=== PATIENT | female | born 2005 | race Caucasian/White ===

== ENCOUNTER → 2024-12-19 | Outpatient (CLI) | payer OTHER, SELFPAY ==
[2024-12-19 12:20] LABS: Absolute Lymphocyte Count 1.79 X10^3/uL (0.83-4.51); Absolute Neutrophil Count 10.8 X10^3/uL (2.0-7.7); Basophil# 0.04 X10^3/uL; Basophil% 0.3 % (0-1); Eosinophil# 0.03 X10^3/uL; Eosinophils% 0.2 % (0-5); Hematocrit 38.5 % (37-47); Hemoglobin 13.5 g/dL (12.0-15.0); Lymphocyte # 1.79 X10^3/ul (0.83-4.51); Lymphocyte % 13.2 % (19-41); Mean Corp Hgb Conc 35.1 g/dL (32-36); Mean Corpuscular Hgb 32.8 pg (27.0-32.0); Mean Corpuscular Volume 93.4 fL (81-99); Mean Platelet Vol. 9.9 fl (6.2-12.0); Monocyte# 0.92 X10^3/uL; Monocyte% 6.8 % (0-10); NRBC Flagged by Analyzer 0 % (0-5); Neutrophil # 10.75 X10^3/uL (2.7-7.7); Neutrophil % 78.9 % (47-70); Platelet Count 270 K/mm3 (150-450); RBC Distribution Width CV 11.4 % (11.6-14.6); RBC Distribution Width SD 38.7 fl (35.1-43.9); Red Blood Count 4.12 M/mm3 (4.2-5.4); White Blood Count 13.6 K/mm3 (4.4-11.0)
[2024-12-19 13:27] LABS: HIV Nonreactive (Nonreactive); Hepatitis B Surface Antigen Nonreactive (Nonreactive); Hepatitis C Antibody Nonreactive (Nonreactive); Rubella IgG REAC (Nonreactive); Syphilis Antibodies Nonreactive (Nonreactive)
[2024-12-19 13:27] LABS: Hemoglobin A1c 5.1 % (<=5.6)
[2024-12-21 12:08] LABS: Chlamydia By Nucleic Acid AMP Negative (Negative); Gonococcus By Nucleic Acid AMP Negative (Negative)
[2024-12-25 10:25] LABS: HPV Reflexed? NOT INDICATED
== END | disposition home or self-care (01) ==
PROVIDERS: PCP Nurse Practitioner Family; Referring Provider Advanced Practice Midwife; Visit Provider Advanced Practice Midwife
DX: O99.210 Obesity complicating pregnancy, unspecified trimester (principal); Z12.4 Encounter for screening for malignant neoplasm of cervix; Z3A.00 Weeks of gestation of pregnancy not specified
CPT/HCPCS: 36415; 83036; 85025; 86703; 86762; 86780; 86803; 86850; 86900; 86901; 87086; 87340; 87491; 87591; 88175; G0145

== ENCOUNTER → 2025-04-24 | Outpatient (CLI) | payer OTHER, SELFPAY ==
[2025-04-24 13:18] LABS: Hematocrit 37.4 % (37-47); Hemoglobin 11.6 g/dL (12.0-15.0); Immature Granulocytes Count 0.260 X10^3/uL (0.0-0.0); Mean Corp Hgb Conc 31.0 g/dL (32-36); Mean Corpuscular Volume 109.0 fL (81-99); Mean Platelet Vol. 10.3 fl (6.2-12.0); NRBC Flagged by Analyzer 0 % (0-5); Platelet Count 251 K/mm3 (150-450); RBC Distribution Width CV 12.2 % (11.6-14.6); RBC Distribution Width SD 48.8 fl (35.1-43.9); Red Blood Count 3.43 M/mm3 (4.2-5.4); White Blood Count 12.2 K/mm3 (4.4-11.0)
[2025-04-24 14:44] LABS: Glucose Challenge Gest 1H 50g 86 mg/dL (70-140); HIV Nonreactive (Nonreactive); Syphilis Antibodies Nonreactive (Nonreactive)
--- OUTSIDE RECORDS SUMMARY | 2025-04-24 21:43 | XMS RPT_ITS | CCD ---
Author Organization [facility] Care Team Providers Care Neurodiagnostic Technician Name Role Phone Yu Araiza Primary Care Provider Elly Prater MD Unavailable Ron Hernandez MD Unavailable Leydi Gupta MD Unavailable [phone] ELLY PRATER Attending Unavailable ELLY PRATER Primary Care Unavailable ELLY PRATER Admitting Unavailable YU CASTOR CNP Consulting Unavailable PROVIDER, UNKNOWN Consulting Unavailable PROVIDER, UNKNOWN Consulting Unavailable ELLY PRATER Admitting Unavailable ELLY PRATER Attending Unavailable ELLY PRATER Primary Care Unavailable YU CASTRO CNP Consulting Unavailable PROVIDER, UNKNOWN Consulting Unavailable PROVIDER, UNKNOWN Consulting Unavailable ELLY PRATER Admitting Unavailable ELLY PRATER Attending Unavailable ELLY PRATER Primary Care Unavailable YU CASTRO CNP Consulting Unavailable PROVIDER, UNKNOWN Consulting Unavailable PROVIDER, UNKNOWN Consulting Unavailable Yu Araiza Primary Care Provider Ron Hernandez MD Unavailable Gloria NOEL-CYu Primary Care Provider Gloria NOEL-CYu Referring Provider Jahaira Tai CNM Attending Provider Jahaira Tai CNM Referring Provider Bassam MCDONNELL, Dr. Salmon Attending Provider [phone] Ashley Rascon Attending Provider VIKY GALINDO Referring Unavailrivas e VICTOR M CAMERON Attending Unavailable YU CASTRO Primary Care Unavailable ELVIE CAGLE Attending Unavailable ASHLEY DORANTES Referring Unavailable GLORIA, YU D Primary Care Unavailable Joyce Connor CNM Attending Provider Neo Galindoon Attending Unavailable Gloria RD MECHANICAL ENGINEER, Yu Referring Unavailable Gloria RD MECHANICAL ENGINEER, Yu Primary Care Unavailable Hood RD MECHANICAL ENGINEER, Ashley Attending Unavailable Gloria RD MECHANICAL ENGINEER, Yu Referring Unavailable Gloria RD MECHANICAL ENGINEER, Yu Primary Care Unavailable Gloria RD MECHANICAL ENGINEER, Yu Referring Unavailable Gloria RD MECHANICAL ENGINEER, Yu Primary Care Unavailable Hood RD MECHANICAL ENGINEER, Ashley Attending Unavailable Joyce Connor Attending Unavailable Gloria RD MECHANICAL ENGINEER, Yu Referring Unavailable Gloria RD MECHANICAL ENGINEER, Yu Primary Care Unavailable Gloria RD MECHANICAL ENGINEER, Yu Referring Unavailable Gloria RD MECHANICAL ENGINEER, Yu Primary Care Unavailable Hood RD MECHANICAL ENGINEER, Ashley Attending Unavailable Gloria RD MECHANICAL ENGINEER, Yu Primary Care Unavailable Jahaira Tai Attending Unavailable Gloria RD MECHANICAL ENGINEER, Yu Referring Unavailable Jahaira Tai Attending Unavailable Jahaira Tai Referring Unavailable Gloria RD MECHANICAL ENGINEER, Yu Primary Care Unavailable Gloria RD MECHANICAL ENGINEER-C, Yu Primary Care Provider Gloria RD MECHANICAL ENGINEER-C, Yu Referring Provider [phone] Joyce Connor CNM Referring Provider [phone] Allergies Allergy Classification Reported Allergen(s) Allergy Type Date of Onset Reaction(s) Facility (9 sources) Vancomycin; Translations: [VANCOMYCIN] Drug Allergy 03-26-2021 [facility] (1 source) Vancomycin Drug Allergy [facility] (1 source) Vancomycin Drug Allergy 04-11-2025 [facility] Rep[facility] Medications Current Medications Medication Drug Class(es) Dates Sig (Normalized) Sig (Original) acetaminophen 500 mg oral tablet (4 sources) Start: 05-03-2021 take 2 tablets by mouth every six hours as needed for pain acetaminophen (TYLENOL) 500 MG tablet Take 2 Tablets (1,000 mg) by mouth every 6 hours as needed for Pain (migraine) 60 Tablet 5 05/03/2021 Active cetirizine hydrochloride 10 mg oral tablet (4 sources) Histamine-1 Receptor Antagonist Start: 04-29-2021 take 1 tablet by mouth once daily cetirizine (ZYRTEC) 10 MG tablet Take 10 mg by mouth daily 0 04/29/2021 Active cholecalciferol 0.125 mg oral capsule (4 sources) Vitamin D Start: 06-13-2022 take 1 capsule by mouth once daily cholecalciferol (VITAMIN D3) 125 MCG (5000 UT) cap Take 1 Capsule (5,000 Units) by mouth daily 30 Capsule 5 06/13/2022 Active diphenhydrAMINE hydrochloride 25 mg oral capsule (2 sources) Histamine-1 Receptor Antagonist Start: 05-03-2021 take 1 capsule by mouth every six hours as needed for sleep diphenhydrAMINE (BENADRYL) 25 MG capsule Take 1 Capsule (25 mg) by mouth every 6 hours as needed for Itching or Sleep (migraine) 60 Capsule 11 05/03/2021 Active FLUoxetine 10 mg oral tablet (4 sources) Serotonin Reuptake Inhibitor Start: 04-29-2021 take 1 tablet by mouth once daily FLUoxetine (PROZAC) 10 MG tablet Take 10 mg by mouth daily 0 04/29/2021 Active hydrOXYzine hydrochloride 25 mg oral tablet (2 sources) Antihistamine Start: 05-03-2021 take 1 tablet by mouth every eight hours as needed for anxiety, then take 6 tablets by mouth every twenty-four hours as needed for anxiety hydrOXYzine (ATARAX) 25 MG tablet Take 1 Tablet (25 mg) by mouth every 8 hours as needed for Anxiety No more than 6 tabs in 24 hours. 60 Tablet 5 05/03/2021 Active magnesium oxide 400 mg oral tablet (4 sources) Start: 04-19-2022 take 1 tablet by mouth twice daily Magnesium Oxide 400 (240 Mg) MG TABS TAKE 1 TABLET BY MOUTH TWICE A DAY 180 Tablet 3 04/19/2022 Active melatonin 3 mg oral tablet (4 sources) Start: 09-30-2022 take 1-2 tablets by mouth at bedtime melatonin ([facility] MELATONIN) 3 MG tablet TAKE 1 TO 2 TABLETS BY MOUTH 1-2 HOURS BEFORE DESIRED BEDTIME TO AID SLEEP ONSET 180 Tablet 5 09/30/2022 Active Start: 03-15-2022 take 1-2 tablets by mouth at bedtime melatonin ([facility] MELATONIN) 3 MG tablet TAKE 1 TO 2 TABLETS BY MOUTH 1-2 HOURS BEFORE DESIRED BEDTIME TO AID SLEEP ONSET 180 Tablet 1 03/15/2022 Active naproxen sodium 220 mg oral tablet (4 sources) Nonsteroidal Anti-inflammatory Drug Start: 05-03-2021 take 3 tablets by mouth every twelve hours as needed for pain Naproxen Sodium (ALEVE) 220 MG TABS tablet Take 3 Tablets (660 mg) by mouth every 12 hours as needed for Pain (Immediately at start of migraine symptoms. No more than 2 days per week) 60 Tablet 11 05/03/2021 Active Pnv No.[id number]-Dh a-Epa-Fish 400 mcg-35 mg- 25 mg-5 mg tablet,chewable (4 sources) Start: 11-26-2024 Pnv No.[id number]-[id number]-Dha -Epa-Fish 400 mcg-35 mg- 25 mg-5 mg tablet,chewable Active {tbl} PO November 26, 2024 1:00am Probiotic Product (PROBIOTIC-10 PO) (4 sources) Probiotic Produc t (PROBIOTIC-10 PO) Take 1 Capsule by mouth 11 Elevated from [facility] [place]. 0 Active riboflavin 100 mg oral tablet (4 sources) Start: 05-23-2022 take 1 tablet by mouth twice daily vitamin B-2 (RIBOFLAVIN) 100 MG tablet TAKE 1 TABLET BY MOUTH TWICE A DAY 180 Tablet 3 05/23/2022 Active Completed/Discontinued Medications Medication Drug Class(es) Dates Sig (Normalized) Sig (Original) gadoterate meglumine (DOTAREM) 10 MMOL/20ML injection 15.8 mL (1 source) Start: 10-04-2022 End: 10-04-2022 gadoterate meglumine (DOTAREM) 10 MMOL/20ML injection 15.8 mL inulin 2000 mg chewable tablet (4 sources) Start: 04-07-2024 End: 11-26-2024 Inulin (Fiber Gummies) 2 gram tablet,chewable Discontinued g PO April 07, 2024 12:00am November 26, 2024 12:05pm Multivitamin tablet (4 sources) Start: 04-07-2024 End: 11-26-2024 Multivitamin tablet Discontinued 1 {tbl} PO DAILY April 07, 2024 12:00am November 26, 2024 12:05pm predniSONE 10 mg oral tablet (4 sources) Start: 04-07-2024 End: 04-22-2024 Prednisone 10 mg tablet Discontinued 10 mg PO .COMPLEX 35 15 0 April 07, 2024 12:00am April 21, 2024 12:00am April 22, 2024 12:05am 10 mg orally; 40mg x5 days, 20mg x5 days, 10mg x5 days Problems Active Problems Problem Classification Problem Date Documented Date Episodic/Chronic Administrative/social admission (4 sources) Patient encounter status; Translations: [Encounter for pre-employment examination] 11-26-2024 Episodic Allergic reactions (13 sources) Contact dermatitis; Translations: [Unspecified contact dermatitis, unspecified cause] Onset: 01-15-2025 06-04-2024 Episodic Anxiety disorders (20 sources) Anxiety; Translations: [Anxiety disorder, unspecified] Onset: 05-03-2021 05-03-2021 Chronic Comment on above: Mild Headache; including migraine (5 sources) Migraine without aura, not refractory ; Translations: [Migraine without aura, not intractable, without status migrainosus] Onset: 05-03-2021 05-03-2021 Chronic Mood disorders (8 sources) Depressive disorder; Translations: [Depression] Onset: 05-03-2021 05-03-2021 Chronic Other complications of (19 sources) Maternal obesity complicating , childbirth and the puerperium, antepartum; Translations: [Obesity complicating , unspecified trimester] 11-26-2024 Chronic Comment on above: HgbA1c Other complications of (1 source) Obesity complicating , unspecified trimester; Translations: [Obesity complicating , unspecified trimester] Onset: 01-27-2025 Chronic Other connective tissue disease (3 sources) Disorder of ankle; Translations: [Other symptoms and signs involving the musculoskeletal system] Episodic Other connective tissue disease (3 sources) Other symptoms and signs involving the musculoskeletal system; Translations: [Other symptoms and signs involving the musculoskeletal system] Onset: 06-23-2022 Episodic Other connective tissue disease (2 sources) Spasticity; Translations: [Cramp and spasm] Episodic Other eye disorders (5 sources) Nystagmus; Translations: [Unspecified nystagmus] Onset: 11-11-2021 11-11-2021 Chronic Other hereditary and degenerative nervous system conditions (5 sources) Yamilet's disease; 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] Onset: 11-11-2021 11-11-2021 Chronic Other nervous system disorders (7 sources) Demyelinating disease of central nervous system; Translations: [Demyelinating disease of central nervous system, unspecified] Onset: 05-03-2021 05-03-2021 Chronic Other nutritional; endocrine; and metabolic disorders (5 sources) Mitochondrial cytopathy; 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 discussed NIPT & Car rier testing-undecided, needs f/u anatomy in 2 weeks:completed. position still would not allow full visual of right hand and could not rule out webbing of fingers. No US follow up but check after delivery. Residual codes; unclassified (2 sources) Genetic mutation; Translations: [Genetic susceptibility to other disease] Onset: 09-20-2022 09-20-2022 Episodic Residual codes; unclassified (1 source) 25 weeks gestation of ; Translations: [25 weeks gestation of ] Onset: 04-11-2025 Episodic Past or Other Problems Problem Classification Problem Date Documented Da te Episodic/Chronic Blindness and vision defects (5 sources) Diplopia; Translations: [Diplopia] Onset: 11-11-2021 11-11-2021 Episodic Other screening for suspected conditions (not mental disorders or infectious disease) (6 sources) Magnetic resonance imaging of brain abnormal; Translations: [Other abnormal findings on diagnostic imaging of central nervous system] Onset: 11-11-2021 11-11-2021 Episodic Residual codes; unclassified (4 sources) Insomnia; Translations: [Insomnia, unspecified] Onset: 05-03-2021 05-03-2021 Episodic Residual codes; unclassified (1 source) 13 weeks gestation of ; Translations: [13 weeks gestation of ] Onset: 01-15-2025 Episodic Residual codes; unclassified (1 source) 9 weeks gestation of ; Translations: [9 weeks gestation of ] Onset: 12-19-2024 Episodic Results Test Name Value Interpretation Reference Range Facility Laboratory - Chemistry and C hemistry - challengeOrdered By: Joyce Connor on 04-11-2025 Glucose Ql (U) Negative [facility] Laboratory - UrinalysisOrder ed By: Joyce Connor on 04-11-2025 Protein Ql (U) Negative [facility] Inspector [employer] Wafer Office Visit Reporton 04-11-2025 Inspector [employer] Wafer Office Visit Report [facility] [address], [address] [place] [address] OFFICE VISIT Date of Service: 04/11/25 MR#: [id number] Acct: [id number] Name: RAPHAEL SHEETS Rep #: [id number] : 2005 Provider: JANE vernon Age/Sex: 20/F [place] [facility] [place]: Signed Intake Vital Signs 02/12/25 08:26 03/12/25 15:07 04/11/25 10:27 Height 5 ft 4 in 5 ft 4 in 5 ft 4 in Weight: 187 lb 6 oz BMI 32.1 BP 110/73 Intake Visit Reasons: 26 wk ob *rs 8/ appt* Chief Complaint: 26wk OB Core Maker Helper Required: No Is patient in pain?: No Allergies vancomycin Allergy (Verified 04/11/25 10:28) Hives Medications ???Medication ???Instructions ???Recorded ???Confirmed ???Type PNV 153-FA 400 mcg-om3 35 mg-dha tab PO 11/26/24 04/11/25 History 25 mg-epa 5 mg-fish oil chew tablet Last Menstrual Period: 10/12/24 : No PFSH PFSH Surgical History Index teeth extracted Family History Grandmother Diabetes Maternal Heart disease Maternal Cancer, Onset Age: 63 Maternal Kidney Grandfather Diabetes Maternal Heart disease Maternal Cancer Maternal Prostate with Mets Social History adopted: No household members: spouse current occupational status: employed 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[employer] current occupational exposures/hazards: No pets and animals: Yes pets and animals: dog(s) history of recent travel: No sexually active: Yes Smoking Status: Never smoker alcohol intake: current alcohol intake frequency: holidays/special occasions only details: not while substance use type: does not use well-balanced diet: about half the time caffeine: Yes Type: coffee Number of servings: 1 eating out: rarely or never during the past year weight has: remained stable what type of physical activity do you participate in: walking frequency: daily duration: 15-30 minutes/day yue/confucianism: Yarsanism seatbelt use: always do you feel safe at home: Yes additional social history: Arun- [employer] Member History 1 Elective abortions Hx Para 0 Spontaneous abortions Hx # Term Pregnancies Ectopic pregnancies Hx # Pregnancies Multiple births # of living children HPI 26 wk ob *rs 05/22 appt* Details: RAPHAEL SHEETS is a 20 year old who presents for routine OB visit. OB Visit [facility]ANCA Calculator Estimated Delivery Date Method Current WG Current Estimate 07/19/25 LMP (Certain) 25w 6d Other Estimates 07/14/25 Ultrasound #1 26w 4d Expected Delivery Route/Plan Labor Preferences- CB/BF classes: enc. labor support person: [] labor intervention preferences: [] pain management options preferred: [] cut cord/dad catch: [] : [] PP control planned: [] discussed possible routes of delivery and associated risks: [] special requests: [] Specific Issue/Plans Covid status: [] Flu vaccine: [] Tdap vaccine: [] Rhogam: [] LARC form signed: [] Problem list reviewed and updated with the most current plan of care details and appropriate orders placed. Relevant counseling for the gestational age provided. Continue routine care and follow up unless otherwise noted in visit notes/problem list details Initial Weight: 168 lb Date -???-???-???-???-?? ?-???-???-???-???-? ??-???-???- EGA Weight BP Urine Prot -???-???-???-???-?? ?-???-???-???-???-? ??-???-???- Glucose FHR FuHt Pres Dilation -???-???-???-???-?? ?-???-???-???-???-? ??-???-???- Effaced St Visit Note 12/19/24 -???-???-???-???-?? ?-???-???-???-???-? ??-???-???- 9w 5d 168 lb 8 oz (+8 oz) 114/77 -???-???-???-???-?? ?-???-???-???-???-? ??-???-???- 181 -???-???-???-???-?? ?-???-???-???-???-? ??-???-???- KW- CRL cons with dates. declines NIPT. 01/15/25 -???-???-???-???-?? ?-???-???-???-???-? ??-???-???- 13w 4d 173 lb 4 oz (+5 lb 4 oz) 111/72 Negative -???-???-???-???-?? ?-???-???-???-???-? ??-???-???- Negative 150 -???-???-???-???-?? ?-???-???-???-???-? ??-???-???- SM- no vb cr maping 02/12/25 -???-???-???-???-?? ?-???-???-???-???-? ??-???-???- 17w 4d 177 lb (+9 lb) 112/72 Negative -???-???-???-???-?? ?-???-???-???-???-? ??-???-???- Negative 155 -???-???-???-???-?? ?-???-???-???-???-? ??-???-???- -NO VB. Fe els well. Denies concerns 03/12/25 -???-???-???-???-?? ?-???-???-???-???-? ??-???-???- 21w 4d 185 lb 2 oz (+17 lb 2 oz) 108/70 Negative -???-???-???-???-?? ?-???-???-???-???-? ??-???-???- Negative 150 -???-???-???-???-?? ?-???-???-???-???-? ??-???-???- -No VB. Fe eling flutters. 04/11/25 -???-???-???-???-?? ?-???-???-???-???-? ??-???-???- 25w (more content not included)... Normal [facility] Laboratory - Chemistry and C hemistry - challengeOrdered By: Farzana Shields on 03-12-2025 Glucose Ql (U) Negative [facility] Laboratory - UrinalysisOrder ed By: Farzana Shields on 03-12-2025 Protein Ql (U) Negative [facility] Inspector [employer] Wafer Office Visit Reporton 03-12-2025 Inspector [employer] Wafer Office Visit Report [facility] [address], [address] [place] [address] OFFICE VISIT Date of Service: 03/12/25 MR#: [id number] Acct: [id number] Name: RAPHAEL SHEETS Rep #: [id number] : 2005 Provider: MAXIMILIAN smith Age/Sex: 19/F [place] [facility] [place]: Signed Intake Vital Signs 01/15/25 11:48 02/12/25 08:26 03/12/25 15:07 Height 5 ft 4 in 5 ft 4 in 5 ft 4 in Weight: 185 lb 2 oz BMI 31.7 BP 108/70 Intake Visit Reasons: 22 wk ob Chief Complaint: 22 Week OB Core Maker Helper Required: No Is patient in pain?: No Allergies vancomycin Allergy (Verified 02/12/25 08:25) Hives Medications ???Medication ???Instructions ???Recorded ???Confirmed ???Type PNV 153-FA 400 mcg-om3 35 mg-dha tab PO 11/26/24 03/12/25 History 25 mg-epa 5 mg-fish oil chew tablet Last Menstrual Period: 10/12/24 Zika: Zika virus screening: Negative : No PFSH PFSH Surgical History Index teeth extracted Family History Grandmother Diabetes Maternal Heart disease Maternal Cancer, Onset Age: 63 Maternal Kidney Grandfather Diabetes Maternal Heart disease Maternal Cancer Maternal Prostate with Mets Social History adopted: No household members: spouse current occupational status: employed 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[employer] current occupational exposures/hazards: No pets and animals: Yes pets and animals: dog(s) history of recent travel: No sexually active: Yes Smoking Status: Never smoker alcohol intake: current alcohol intake frequency: holidays/special occasions only details: not while substance use type: does not use well-balanced diet: about half the time caffeine: Yes Type: coffee Number of servings: 1 eating out: rarely or never during the past year weight has: remained stable what type of physical activity do you participate in: walking frequency: daily duration: 15-30 minutes/day yue/confucianism: Yarsanism seatbelt use: always do you feel safe at home: Yes additional social history: [employer]un- [employer] Member History 1 Elective abortions Hx Para 0 Spontaneous abortions Hx # Term Pregnancies Ectopic pregnancies Hx # Pregnancies Multiple births # of living children HPI 22 wk ob Details: RAPHAEL SHEETS is a 19 year old who presents for routine OB visit. OB Visit BLANCA Calculator Estimated Delivery Date Method Current WG Current Estimate 07/19/25 LMP (Certain) 21w 4d Other Estimates 07/14/25 Ultrasound #1 22w 2d Expected Delivery Route/Plan Labor Preferences- CB/BF classes: [] labor support person: [] labor intervention preferences: [] pain management options preferred: [] cut cord/dad catch: [] : [] PP control planned: [] discussed possible routes of delivery and associated risks: [] special requests: [] Specific Issue/Plans Covid status: [] Flu vaccine: [] Tdap vaccine: [] Rhogam: [] LARC form signed: [] Problem list reviewed and updated with the most current plan of care details and appropriate orders placed. Relevant counseling for the gestational age provided. Continue routine care and follow up unless otherwise noted in visit notes/problem list details Initial Weight: 168 lb Date -???-???-???-???-?? ?-???-???-???-???-? ??-???-???- EGA Weight BP Urine Prot -???-???-???-???-?? ?-???-???-???-???-? ??-???-???- Glucose FHR FuHt Pres Dilation -???-???-???-???-?? ?-???-???-???-???-? ??-???-???- Effaced St Visit Note 12/19/24 -???-???-???-???-?? ?-???-???-???-???-? ??-???-???- 9w 5d 168 lb 8 oz (+8 oz) 114/77 -???-???-???-???-?? ?-???-???-???-???-? ??-???-???- 181 -???-???-???-???-?? ?-???-???-???-???-? ??-???-???- KW- CRL cons with dates. declines NIPT. 01/15/25 -???-???-???-???-?? ?-???-???-???-???-? ??-???-???- 13w 4d 173 lb 4 oz (+5 lb 4 oz) 111/72 Negative -???-???-???-???-?? ?-???-???-???-???-? ??-???-???- Negative 150 -???-???-???-???-?? ?-???-???-???-???-? ??-???-???- SM- no vb cr maping 02/12/25 -???-???-???-???-?? ?-???-???-???-???-? ??-???-???- 17w 4d 177 lb (+9 lb) 112/72 Negative -???-???-???-???-?? ?-???-???-???-???-? ??-???-???- Negative 155 -???-???-???-???-?? ?-???-???-???-???-? ??-???-???- MH-NO VB. Fe els well. Denies concerns 03/12/25 -???-???-???-???-?? ?-???-???-???-???-? ??-???-???- 21w 4d 185 lb 2 oz (+17 lb 2 oz) 108/70 Negative -???-???-???-???-?? ?-???-???-???-???-? ??-???-???- Negative 150 -???-???-???-???-?? ?-???-???-???-???-? ??-???-???- MH-No VB. Fe eling flutters. ACOG First Trimester First Tr (more content not included)... Normal [facility] Laboratory - Chemistry and C hemistry - challengeOrdered By: Ashley Dorantes on 02-12-2025 Glucose Ql (U) Negative [facility] Laboratory - UrinalysisOrder ed By: Ashley Dorantes on 02-12-2025 Protein Ql (U) Negative [facility] Inspector [employer] Wafer Office Visit Reporton 02-12-2025 Inspector [employer] Wafer Office Visit Report [facility] [address], [address] [place] [address] OFFICE VISIT Date of Service: 02/12/25 MR#: [id number] Acct: [id number] Name: RAPHAEL SHEETS Rep #: [id number] : 2005 Provider: MAXIMILIAN smith Age/Sex: 19/F [place] [facility] Status: Signed Intake Vital Signs 12/19/24 08:41 01/15/25 11:48 02/12/25 08:26 Height 5 ft 4 in 5 ft 4 in 5 ft 4 in Weight: 168 lb 8 oz 173 lb 4 oz 177 lb BMI 28.9 29.7 30.4 BP 114/77 111/72 112/72 Intake Visit Reasons: 18 wk ob Chief Complaint: 18 Week OB Core Maker Helper Required: No Is patient in pain?: No Allergies vancomycin Allergy (Verified 02/12/25 08:25) Hives Medications ???Medication ???Instructions ???Recorded ???Confirmed ???Type PNV 153-FA 400 mcg-om3 35 mg-dha tab PO 11/26/24 02/12/25 History 25 mg-epa 5 mg-fish oil chew tablet Last Menstrual Period: 10/12/24 Zika: Zika virus screening: Negative : No PFSH PFSH Surgical History Index teeth extracted Family History Grandmother Diabetes Maternal Heart disease Maternal Cancer, Onset Age: 63 Maternal Kidney Grandfather Diabetes Maternal Heart disease Maternal Cancer Maternal Prostate with Mets Social History adopted: No household members: spouse current occupational status: employed 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[employer] current occupational exposures/hazards: No pets and animals: Yes pets and animals: dog(s) history of recent travel: No sexually active: Yes Smoking Status: Never smoker alcohol intake: current alcohol intake frequency: holidays/special occasions only details: not while substance use type: does not use well-balanced diet: about half the time caffeine: Yes Type: coffee Number of servings: 1 eating out: rarely or never during the past year weight has: remained stable what type of physical activity do you participate in: walking frequency: daily duration: 15-30 minutes/day yue/confucianism: Yarsanism seatbelt use: always do you feel safe at home: Yes additional social history: Arun- Marce History 1 Elective abortions Hx Para 0 Spontaneous abortions Hx # Term Pregnancies Ectopic pregnancies Hx # Pregnancies Multiple births # of living children HPI 18 wk ob Details: RAPHAEL SHEETS is a 19 year old who presents for routine OB visit. OB Visit BLANCA Calculator Estimated Delivery Date Method Current WG Current Estimate 07/19/25 LMP (Certain) 17w 4d Other Estimates 07/14/25 Ultrasound #1 18w 2d Expected Delivery Route/Plan Labor Preferences- CB/BF classes: [] labor support person: [] labor intervention preferences: [] pain management options preferred: [] cut cord/dad catch: [] : [] PP control planned: [] discussed possible routes of delivery and associated risks: [] special requests: [] Specific Issue/Plans Covid status: [] Flu vaccine: [] Tdap vaccine: [] Rhogam: [] LARC form signed: [] Problem list reviewed and updated with the most current plan of care details and appropriate orders placed. Relevant counseling for the gestational age provided. Continue routine care and follow up unless otherwise noted in visit notes/problem list details Initial Weight: 168 lb Date -???-???-???-???-?? ?-???-???-???-???-? ??-???-???- EGA Weight BP Urine Prot -???-???-???-???-?? ?-???-???-???-???-? ??-???-???- Glucose FHR FuHt Pres Dilation -???-???-???-???-?? ?-???-???-???-???-? ??-???-???- Effaced St Visit Note 12/19/24 -???-???-???-???-?? ?-???-???-???-???-? ??-???-???- 9w 5d 168 lb 8 oz (+8 oz) 114/77 -???-???-???-???-?? ?-???-???-???-???-? ??-???-???- 181 -???-???-???-???-?? ?-???-???-???-???-? ??-???-???- KW- CRL cons with dates. declines NIPT. 01/15/25 -???-???-???-???-?? ?-???-???-???-???-? ??-???-???- 13w 4d 173 lb 4 oz (+5 lb 4 oz) 111/72 Negative -???-???-???-???-?? ?-???-???-???-???-? ??-???-???- Negative 150 -???-???-???-???-?? ?-???-???-???-???-? ??-???-???- SM- no vb cr maping 02/12/25 -???-???-???-???-?? ?-???-???-???-???-? ??-???-???- 17w 4d 177 lb (+9 lb) 112/72 Negative -???-???-???-???-?? ?-???-???-???-???-? ??-???-???- Negative 155 -???-???-???-???-?? ?-???-???-???-???-? ??-???-???- MH-NO VB. Fe els well. Denies concerns ACOG First Trimester First Trimester: Discussed Second Trimester Second Trimester: Signs and Symptoms of Labor, Selecting a care provider, Reproductive Life Planning Contreception, Care Planning, Depression/An (more content not included)... Normal [facility] Laboratory - Chemistry and C hemistry - challengeOrdered By: Viky Galindo on 01-15-2025 Glucose Ql (U) Negative [facility] Laboratory - UrinalysisOrder ed By: Viky Galindo on 01-15-2025 Protein Ql (U) Negative [facility] Inspector [employer] Wafer Office Visit Reporton 01-15-2025 Inspector [employer]iconductor Wafer Office Visit Report [facility] [address], [address] [place] [address] OFFICE VISIT Date of Service: 01/15/25 MR#: [id number] Acct: [id number] Name: RAPHAEL SHEETS Rep #: [id number] : 2005 Provider: Dr. 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 Required: No Is patient in pain?: No Allergies vancomycin Allergy (Verified 01/15/25 11:48) Hives Medications ???Medication ???Instructions ???Recorded ???Confirmed ???Type PNV 153-FA 400 mcg-om3 35 mg-dha tab PO 11/26/24 01/15/25 History 25 mg-epa 5 mg-fish oil chew tablet Last Menstrual Period: 10/12/24 Zika: Zika virus screening: Negative : No PFSH PFSH Medical History Physical exam, pre-employment Surgical History Index teeth extracted Family History Grandmother Diabetes Maternal Heart disease Maternal Cancer, Onset Age: 63 Maternal Kidney Grandfather Diabetes Maternal Heart disease Maternal Cancer Maternal Prostate with Mets Social History adopted: No household members: spouse current occupational status: employed 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[employer] current occupational exposures/hazards: No pets and animals: Yes pets and animals: dog(s) history of recent travel: No sexually active: Yes Smoking Status: Never smoker alcohol intake: current alcohol intake frequency: holidays/special occasions only details: not while substance use type: does not use well-balanced diet: about half the time caffeine: Yes Type: coffee Number of servings: 1 eating out: rarely or never during the past year weight has: remained stable what type of physical activity do you participate in: walking frequency: daily duration: 15-30 minutes/day yue/confucianism: Yarsanism seatbelt use: always do you feel safe at home: Yes additional social history: Felicita Zheng History 1 Elective abortions Hx Para 0 Spontaneous abortions Hx # Term Pregnancies Ectopic pregnancies Hx # Pregnancies Multiple births # of living children HPI 14 wks OB Details: RAPHAEL SHEETS is a 19 year old who presents for routine OB visit. OB Visit BLANCA Calculator Estimated Delivery Date Method Current WG Current Estimate 07/19/25 LMP (Certain) 13w 4d Other Estimates 07/14/25 Ultrasound #1 14w 2d Expected Delivery Route/Plan Labor Preferences- CB/BF classes: [] labor support person: [] labor intervention preferences: [] pain management options preferred: [] cut cord/dad catch: [] : [] PP control planned: [] discussed possible routes of delivery and associated risks: [] special requests: [] Specific Issue/Plans Covid status: [] Flu vaccine: [] Tdap vaccine: [] Rhogam: [] LARC form signed: [] Problem list reviewed and updated with the most current plan of care details and appropriate orders placed. Relevant counseling for the gestational age provided. Continue routine care and follow up unless otherwise noted in visit notes/problem list details Initial Weight: 168 lb Date -???-???-???-???-?? ?-???-???-???-???-? ??-???-???- EGA Weight BP Urine Prot -???-???-???-???-?? ?-???-???-???-???-? ??-???-???- Glucose FHR FuHt Pres Dilation -???-???-???-???-?? ?-???-???-???-???-? ??-???-???- Effaced St Visit Note 12/19/24 -???-???-???-???-?? ?-???-???-???-???-? ??-???-???- 9w 5d 168 lb 8 oz (+8 oz) 114/77 -???-???-???-???-?? ?-???-???-???-???-? ??-???-???- 181 -???-???-???-???-?? ?-???-???-???-???-? ??-???-???- KW- CRL cons with dates. declines NIPT. 01/15/25 -???-???-???-???-?? ?-???-???-???-???-? ??-???-???- 13w 4d 173 lb 4 oz (+5 lb 4 oz) 111/72 Negative -???-???-???-???-?? ?-???-???-???-???-? ??-???-???- Negative 150 -???-???-???-???-?? ?-???-???-???-???-? ??-???-???- SM- no vb cr maping ACOG First Trimester First Trimester: Discussed Second Trimester Second Trimester: Signs and Symptoms of Labor, Selecting a care provider, Reproductive Life Planning Contreception, Care Planning, Depression/Anxiety and Intimate Partner Violence; Discussed Tobacco Cessation Third Trimester Third Trimester: Pain Management Plans, Labor support person(s), Immediate Larc, Signs and Symptoms of Preeclampsia, Infant Feeding No Gerri (more content not included)... Normal [facility] PAP I-G w/rfx hrHPV-Aptimaon 12-23-2024 ADEQ Comment Normal . [facility] Comment on above: Order Comment: Speci men Comment: [id number] Comment: Source.............CervixSpecimen Comment: LMP / Prev Treat...[id number] Comment: Other..............Specimen Comment: No. of containers..01 ThinPrep Vial Result Comment: Sati sfactory for evaluation. Endocervical and/or squamous metaplastic cells (endocervical component) are present. Performed By: #### B TS, L501.9985, L7400.0353, L7000.1800, L3890.6006, L509.8002, L3890.6301, L3890.6102, L100.0100, M100.2200, L509.4006 ####[facility] [address] [place], [place], [id number] COMM . Normal . [facility] Comment on above: Order Comment: Speci men Comment: [id number] Comment: Source.............CervixSpecimen Comment: LMP / Prev Treat...[id number] Comment: Other..............Specimen Comment: No. of containers..01 ThinPrep Vial Performed By: #### B TS, L501.9985, L7400.0353, L7000.1800, L3890.6006, L509.8002, L3890.6301, L3890.6102, L100.0100, M100.2200, L509.4006 ####[facility] [address] [place], [address] COMMENT Comment Normal . [facility] Comment on above: Order Comment: Speci men Comment: [id number] Comment: Source.............CervixSpecimen Comment: LMP / Prev Treat...[id number] Comment: Other..............Specimen Comment: No. of containers..01 ThinPrep Vial Result Comment: This liquid based ThinPrep(R) pap test was screened with the use of an image guided system. Performed By: #### B TS, L501.9985, L7400.0353, L7000.1800, L3890.6006, L509.8002, L3890.6301, L3890.6102, L100.0100, M100.2200, L509.4006 ####[facility] [address] [place], [place], [phone] DIAG Comment Normal . [facility] Comment on above: Order Comment: Speci men Comment: [id number] Comment: Source.............CervixSpecimen Comment: LMP / Prev Treat...[id number] Comment: Other..............Specimen Comment: No. of containers..01 ThinPrep Vial Result Comment: NEGA TIVE FOR INTRAEPITHELIAL LESION OR MALIGNANCY. Performed By: #### B TS, L501.9985, L7400.0353, L7000.1800, L3890.6006, L509.8002, L3890.6301, L3890.6102, L100.0100, M100.2200, L509.4006 ####[facility] [address] [facility] [place], [address] HPV RFLX Comment Normal . [facility] Comment on above: Order Comment: Speci men Comment: [id number] Comment: Source.............CervixSpecimen Comment: LMP / Prev Treat...[id number] Comment: Other..............Specimen Comment: No. of containers..01 ThinPrep Vial Result Comment: The HPV DNA reflex criteria were not met with this specimen result therefore, no HPV testing was performed. Performed at: [address] [id number] [employer] Supervisor: Gertrudis Felipe MD, Phone: [phone] Performed By: #### B TS, L501.9985, L7400.0353, L7000.1800, L3890.6006, L509.8002, L3890.6301, L3890.6102, L100.0100, M100.2200, L509.4006 ####[facility] [address] [facility] [place], [address] PAPSMR Comment Normal . [facility] Comment on above: Order Comment: Speci men Comment: [id number] Comment: Source.............CervixSpecimen Comment: LMP / Prev Treat...[id number] Comment: Other..............Specimen Comment: No. of containers..01 ThinPrep Vial Result Comment: The Pap smear is a screening test designed to aid in the detection of premalignant and malignant conditions of the uterine cervix. It is not a diagnostic procedure and should not be used as the sole means of detecting cervical cancer. Both false-positive and false-negative reports do occur. Performed By: #### B TS, L501.9985, L7400.0353, L7000.1800, L3890.6006, L509.8002, L3890.6301, L3890.6102, L100.0100, M100.2200, L509.4006 ####[facility] [address] [place], [address] PERFORM Comment Normal . [facility] Comment on above: Order Comment: Speci men Comment: [id number] Comment: Source.............CervixSpecimen Comment: LMP / Prev Treat...[id number] Comment: Other..............Specimen Comment: No. of containers..01 ThinPrep Vial Result Comment: Laxmi Joshi Radiologic Technologist Chief (ASCP) Performed By: #### B TS, L501.9985, L7400.0353, L7000.1800, L3890.6006, L509.8002, L3890.6301, L3890.6102, L100.0100, M100.2200, L509.4006 ####[facility] [address] [place], [place], [phone] Chlamydia/GC JULITA aptimaon CHLAMY,NUC ACID Negative Normal Negative [facility] Comment on above: Performed By: #### B TS, L501.9985, L7400.0353, L7000.1800, L3890.6006, L509.8002, L3890.6301, L3890.6102, L100.0100, M100.2200, L509.4006 ####[facility] [address] [place], [place], [phone] GC BY NUC ACID Negative Normal Negative [facility] Comment on above: Result Comment: Perf ormed at: =G - [facility] [address] [id number] [employer] Supervisor: Gertrudis Felipe MD, Phone: [phone] Performed By: #### B TS, L501.9985, L7400.0353, L7000.1800, L3890.6006, L509.8002, L3890.6301, L3890.6102, L100.0100, M100.2200, L509.4006 ####[facility] [address] [place], [address] Urine Cultureon 12-20-2024 URC Culture exhibits no growth. Normal [facility] Comment on above: Performed By: #### B TS, L501.9985, L7400.0353, L7000.1800, L3890.6006, L509.8002, L3890.6301, L3890.6102, L100.0100, M100.2200, L509.4006 ####[facility] [address] [place], [place], [phone] Absolute lymphocyte countOrd ered By: Jahaira Tai on 12-19-2024 Lymphocytes Auto (Unsp spec) [#/Vol] 1.79 10*3/uL 0.83-4.51 [facility] Absolute neutrophil countOrd ered By: Jahaira Tai on 12-19-2024 Neutrophils (Bld) [#/Vol] 10.8 10*3/uL High 2.0-7.7 [facility] Automated lymphocyte count a s percentage of total leukocytesOrdered By: Jahaira Tai on 12-19-2024 Lymphocytes/100 WBC Auto (Unsp spec) 13.2 % Low 19-41 [facility] Basophil percentageOrdered B y: Jahaira Tai on 12-19-2024 Basophils/100 WBC (Bld) 0.3 % 0-1 [facility] C. trachomatis rRNA JULITA+prob e Ql (Unsp spec)Ordered By: Jahaira Zaire on 12-19-2024 Chlamydia DNA (JULITA) Negative Negative [facility] CBC W/Diff, Automatedon 03-0 Absolute Lymph 1.79 X10 3/uL Normal 0.83-4.51 [facility] Comment on above: Performed By: #### B TS, L501.9985, L7400.0353, L7000.1800, L3890.6006, L509.8002, L3890.6301, L3890.6102, L100.0100, M100.2200, L509.4006 #### [facility] Laboratory [address] [place], [address] Absolute Neut 10.8 X10 3/uL High 2.0-7.7 [facility] Comment on above: Performed By: #### B TS, L501.9985, L7400.0353, L7000.1800, L3890.6006, L509.8002, L3890.6301, L3890.6102, L100.0100, M100.2200, L509.4006 #### [facility] [address] [place], [place], [phone] (118 Basophils/100 WBC (Bld) 0.3 % Normal 0-1 [facility] Comment on above: Performed By: #### B TS, L501.9985, L7400.0353, L7000.1800, L3890.6006, L509.8002, L3890.6301, L3890.6102, L100.0100, M100.2200, L509.4006 #### [facility] [address] [place], [address] Eosinophils/100 WBC (Bld) 0.2 % Normal 0-5 [facility] Comment on above: Performed By: #### B TS, L501.9985, L7400.0353, L7000.1800, L3890.6006, L509.8002, L3890.6301, L3890.6102, L100.0100, M100.2200, L509.4006 #### [facility] [address] [place], [address] (848) Erythrocyte distribution width (RBC) [Ratio] 11.4 % Low 11.6-14.6 [facility] Comment on above: Performed By: #### B TS, L501.9985, L7400.0353, L7000.1800, L3890.6006, L509.8002, L3890.6301, L3890.6102, L100.0100, M100.2200, L509.4006 #### [facility] [address] [place], [address] Hematocrit (Bld) [Volume fraction] 38.5 % Normal 37-47 [facility] Comment on above: Performed By: #### B TS, L501.9985, L7400.0353, L7000.1800, L3890.6006, L509.8002, L3890.6301, L3890.6102, L100.0100, M100.2200, L509.4006 #### [facility] [address] [place], [address] Hemoglobin (Bld) [Mass/Vol] 13.5 g/dL Normal 12.0-15.0 [facility] Comment on above: Performed By: #### B TS, L501.9985, L7400.0353, L7000.1800, L3890.6006, L509.8002, L3890.6301, L3890.6102, L100.0100, M100.2200, L509.4006 #### [facility] [address] [place], [address] IG% 0.600 Normal 0.0-0.9 [facility] Comment on above: Result Comment: IG% - Immature Granulocytes (promyelocytes, myelocytes and metamyelocytes) > 1% indicates that a LEFT SHIFT is Present. Performed By: #### B TS, L501.9985, L7400.0353, L7000.1800, L3890.6006, L509.8002, L3890.6301, L3890.6102, L100.0100, M100.2200, L509.4006 #### [facility] [address] [place], [address] Lymphocytes/100 WBC (Bld) 13.2 % Low 19-41 [facility] Comment on above: Performed By: #### B TS, L501.9985, L7400.0353, L7000.1800, L3890.6006, L509.8002, L3890.6301, L3890.6102, L100.0100, M100.2200, L509.4006 #### [facility] [address] [place], [address] MCH (RBC) [Entitic mass] 32.8 pg High 27.0-32.0 [facility] Comment on above: Performed By: #### B TS, L501.9985, L7400.0353, L7000.1800, L3890.6006, L509.8002, L3890.6301, L3890.6102, L100.0100, M100.2200, L509.4006 #### [facility] [address] [place], [address] MCHC (RBC) [Mass/Vol] 35.1 g/dL Normal 32-36 [facility] Comment on above: Performed By: #### B TS, L501.9985, L7400.0353, L7000.1800, L3890.6006, L509.8002, L3890.6301, L3890.6102, L100.0100, M100.2200, L509.4006 #### [facility] [address] [place], [address] MCV (RBC) [Entitic vol] 93.4 fL Normal 81-99 [facility] Comment on above: Performed By: #### B TS, L501.9985, L7400.0353, L7000.1800, L3890.6006, L509.8002, L3890.6301, L3890.6102, L100.0100, M100.2200, L509.4006 #### [facility] [address] [facility] [place], [address] Monocytes/100 WBC (Bld) 6.8 % Normal 0-10 [facility] Comment on above: Performed By: #### B TS, L501.9985, L7400.0353, L7000.1800, L3890.6006, L509.8002, L3890.6301, L3890.6102, L100.0100, M100.2200, L509.4006 #### [facility] [address] [facility] [place], [address] Neutrophils/100 WBC (Bld) 78.9 % High 47-70 [facility] Comment on above: Performed By: #### B TS, L501.9985, L7400.0353, L7000.1800, L3890.6006, L509.8002, L3890.6301, L3890.6102, L100.0100, M100.2200, L509.4006 #### [facility] [address] [facility] [place], [address] Nucleated RBC (Bld) [#/Vol] 0 10*3/uL Normal 0-5 [facility] Comment on above: Performed By: #### B TS, L501.9985, L7400.0353, L7000.1800, L3890.6006, L509.8002, L3890.6301, L3890.6102, L100.0100, M100.2200, L509.4006 #### [facility] [address] [place], [address] Platelet mean volume (Bld) [Entitic vol] 9.9 fL Normal 6.2-12.0 [facility] Comment on above: Performed By: #### B TS, L501.9985, L7400.0353, L7000.1800, L3890.6006, L509.8002, L3890.6301, L3890.6102, L100.0100, M100.2200, L509.4006 #### [facility] [address] [place], [address] Platelets (Bld) [#/Vol] 270 10*3/uL Normal 150-450 [facility] Comment on above: Performed By: #### B TS, L501.9985, L7400.0353, L7000.1800, L3890.6006, L509.8002, L3890.6301, L3890.6102, L100.0100, M100.2200, L509.4006 #### [facility] [address] [place], [address] RBC (Bld) [#/Vol] 4.12 10*6/uL Low 4.2-5.4 [facility] Comment on above: Performed By: #### B TS, L501.9985, L7400.0353, L7000.1800, L3890.6006, L509.8002, L3890.6301, L3890.6102, L100.0100, M100.2200, L509.4006 #### [facility] [address] [place], [address] RDW SD 38.7 fl Normal 35.1-43.9 [facility] Comment on above: Performed By: #### B TS, L501.9985, L7400.0353, L7000.1800, L3890.6006, L509.8002, L3890.6301, L3890.6102, L100.0100, M100.2200, L509.4006 #### [facility] [address] [place], [address] WBC (Bld) [#/Vol] 13.6 10*3/uL High 4.4-11.0 [facility] Comment on above: Performed By: #### B TS, L501.9985, L7400.0353, L7000.1800, L3890.6006, L509.8002, L3890.6301, L3890.6102, L100.0100, M100.2200, L509.4006 #### [facility] [address] [place], [address] Cervical or vagninal specime n microscopic examination by cytology stain (reported asOrdered By: Jahaira Tai on 12-19-2024 Cytology report Cyto stain Doc (Cvx/Vag) Comment . [facility] Comment on above: The Pap smear is a s creening test designed to aid in thedetection of premalignant and malignant conditions of theuterine cervix. It is not a diagnostic procedure andshould not be used as the sole means of detecting cervicalcancer. Both false-positive and false-negative reports dooccur. Chlamydia trachomatis rRNA d etection by probe and target amplification methodOrdered By: Jahaira Tai on 12-19-2024 C. trachomatis rRNA JULITA+probe Ql (Unsp spec) Negative Negative [facility] [employer] Firer/Fireman Cyto stain Nom (C vx/Vag) [ID]Ordered By: Jahaira Tai on 12-19-2024 Pap Smear Performed By Comment . [facility] Comment on above: Shaina Joshi, Cyto technologist (ASCP) Cytology report Cyto stain D oc (Cvx/Vag)Ordered By: Jahaira Tai on 12-19-2024 Thin Prep Pap Smear Comment . [facility] Comment on above: The Pap smear is a s creening test designed to aid in thedetection of premalignant and malignant conditions of theuterine cervix. It is not a diagnostic procedure andshould not be used as the sole means of detecting cervicalcancer. Both false-positive and false-negative reports dooccur. Eosinophil percentageOrdered By: Jahaira Tai on 12-19-2024 Eosinophils/100 WBC (Bld) 0.2 % 0-5 [facility] Erythrocyte distribution wid th ratioOrdered By: Jahaira Tai on 12-19-2024 Erythrocyte distribution width (RBC) [Ratio] 11.4 % Low 11.6-14.6 [facility] Erythrocyte distribution wid th standard deviationOrdered By: Jahaira Tai on 12-19-2024 Erythrocyte distribution width (RBC) [Entitic vol] 38.7 fL 35.1-43.9 [facility] Erythrocyte distribution width (RBC) [Ratio] 38.7 fl 35.1-43.9 [facility] HBV surface Ag Ql (S)Ordered By: Jahaira Tai on 12-19-2024 Hepatitis B Surface Antigen Non-Reactive Nonreactive [facility] Comment on above: Reactive: Presumptiv e evidence of HBV. Repeatedly reactive samples must be confirmed using a neutralization test ([employer] HBsAg Confirmatory Test)Non-Reactive: HBsAg not detected; does not exclude the possibility of exposure to HBV Hematocrit Auto (Bld) [Volum e fraction]Ordered By: Jahaira Tai on 12-19-2024 Hematocrit (Bld) [Volume fraction] 38.5 % 37-47 [facility] Hemoglobin A1con 12-19-2024 HbA1c (Bld) [Mass fraction] 5.1 % Low <=5.6 [facility] Comment on above: Performed By: #### B TS, L501.9985, L7400.0353, L7000.1800, L3890.6006, L509.8002, L3890.6301, L3890.6102, L100.0100, M100.2200, L509.4006 #### [facility] [address] [place], [place], [id number] Hemoglobin A1c percentageOrd ered By: Jahaira Tai on 12-19-2024 HbA1c (Bld) [Mass fraction] 5.1 % Low >5.7 [facility] Hemoglobin measurementOrdere d By: Jahaira Tai on 12-19-2024 Hemoglobin (Bld) [Mass/Vol] 13.5 g/dL 12.0-15.0 [facility] Hepatitis C antibodyOrdered By: Jahaira Tai on 12-19-2024 Hepatitis C Antibody Non-Reactive Nonreactive [facility] Comment on above: Reactive: Presumptiv e evidence of antibodies to HCV. Follow CDC recommendations for supplemental testing.Non-Reactive: Antibodies to HCV were not detected; does not exclude the possibility of exposure to HCVReactive Results are presumptive evidence of antibodies to HCV. Follow CDC recommendations for supplemental testing.Order confirmation testing: HCV Quant by PCR testing - HCVPCR #[id number] Non Reactive: < 0.8 Equivocal: >/= 0.8 to < 1.0 Reactive: >/= 1.0The [facility] requires that a reactive/equivocal HCV antibody result be sent out for confirmation. HCV Quant by PCR testing. Image-guided ThinPrep PapOrd ered By: Jahaira Tai on 12-19-2024 Pap Smear Note Comment . [facility] Comment on above: This liquid based Th inPrep(R) pap test was screened withthe use of an image guided system. Image-guided liquid-based Pa pOrdered By: Jahaira Tai on 12-19-2024 Pap Smear Diagnosis Comment . [facility] Comment on above: NEGATIVE FOR INTRAEP ITHELIAL LESION OR MALIGNANCY. Image-guided liquid-based ce rvical Pap w high-risk HPV+reflex to HPV 16+18Ordered By: Jahaira Tai on 12-19-2024 Human Papillomavirus Screen Comment . [facility] Comment on above: The HPV DNA reflex c riteria were not met with this specimenresult therefore, no HPV testing was performed.Performed at: [facility], [place] [id number] Director: Gertrudis Felipe MD, Phone: [phone] Immature granulocytes/100 WB C Auto (Bld)Ordered By: Jahaira Tai on 12-19-2024 Immature granulocytes/100 WBC (Bld) 0.600 % 0.0-0.9 [facility] Comment on above: IG% - Immature Granu locytes (promyelocytes, myelocytes and metamyelocytes) > 1% indicates that a LEFT SHIFT is Present. L3890.6006on 12-19-2024 HIV Non-Reactive Normal Nonreactive [facility] Comment on above: Result Comment: Non- Reactive Reactive Repeatedly reactive samples must be confirmed according to CDC recommended confirmatory algorithms. The subresults for either HIVAG or AHIV can be used as an aid in the selection of the confirmation algorithm for reactive samples. [facility]. Order the HIV antibody detection and differentiation: lc#[id number] Performed By: #### B TS, L501.9985, L7400.0353, L7000.1800, L3890.6006, L509.8002, L3890.6301, L3890.6102, L100.0100, M100.2200, L509.4006 #### [facility] Laboratory [address] [facility] [place], [place], [id number] L3890.6102on 12-19-2024 HEP B Surf Ag Non-Reactive Normal Nonreactive [facility] Comment on above: Result Comment: Reac tive: Presumptive evidence of HBV. Repeatedly reactive samples must be confirmed using a neutralization test (Elecsys HBsAg Confirmatory Test) Non-Reactive: HBsAg not detected; does not exclude the possibility of exposure to HBV Performed By: #### B TS, L501.9985, L7400.0353, L7000.1800, L3890.6006, L509.8002, L3890.6301, L3890.6102, L100.0100, M100.2200, L509.4006 #### [facility] [address] [facility] [place], [place], [id number] L3890.6301on 12-19-2024 Hepatitis C Ab Non-Reactive Normal Nonreactive [facility] Comment on above: Result Comment: Reac tive: Presumptive evidence of antibodies to HCV. Follow CDC recommendations for supplemental testing. Non-Reactive: Antibodies to HCV were not detected; does not exclude the possibility of exposure to HCV Reactive Results are presumptive evidence of antibodies to HCV. Follow CDC recommendations for supplemental testing. Order confirmation testing: HCV Quant by PCR testing - HCVPCR #[id number] Non Reactive: < 0.8 Equivocal: >/= 0.8 to < 1.0 Reactive: >/= 1.0 The CDC requires that a reactive/equivocal HCV antibody result be sent out for confirmation. HCV Quant by PCR testing. Performed By: #### B TS, L501.9985, L7400.0353, L7000.1800, L3890.6006, L509.8002, L3890.6301, L3890.6102, L100.0100, M100.2200, L509.4006 ####[facility] [address]. [place], [place], [id number] L509.4006on 12-19-2024 Rubella IgG REAC Normal Nonreactive [facility] Comment on above: Result Comment: Anti body Result: Interpretation Non-Reactive: Non-Immune Reactive: Immune The following results were obtained with the Elecsys Rubella IgG assay. Results from assays of other manufacturers cannot be used interchangeably. Performed By: #### B TS, L501.9985, L7400.0353, L7000.1800, L3890.6006, L509.8002, L3890.6301, L3890.6102, L100.0100, M100.2200, L509.4006 #### [facility] [address] [facility] [place], [place], [id number] L509.8002on 12-19-2024 Syphilis Abs Non-Reactive Normal Nonreactive [facility] Comment on above: Performed By: #### B TS, L501.9985, L7400.0353, L7000.1800, L3890.6006, L509.8002, L3890.6301, L3890.6102, L100.0100, M100.2200, L509.4006 #### [facility] [address] [facility] [place], [place], [id number] Laboratory - CytologyOrdered By: Jahaira Tai on 12-19-2024 Electric Locomotive Firer/Fireman Cyto stain Nom (Cvx/Vag) [ID] Comment . [facility] Comment on above: Shaina Joshi, Cyto technologist (ASCP) Laboratory - Microbiology an d Antimicrobial susceptibilityOrdered By: Jahaira Tai on 12-19-2024 HBV surface Ag Ql (S) Non-Reactive Nonreactive [facility] Comment on above: Reactive: Presumptiv e evidence of HBV. Repeatedly reactive samples must be confirmed using a neutralization test (Elecsys HBsAg Confirmatory Test)Non-Reactive: HBsAg not detected; does not exclude the possibility of exposure to HBV Laboratory - Miscellaneous t estsOrdered By: Jahaira Tai on 12-19-2024 Service comment (Unsp spec) [Interp] . . [facility] Lymphocytes Auto (Unsp spec) [#/Vol]Ordered By: Jahaira Tai on 12-19-2024 Lymphocytes (Bld) [#/Vol] 1.79 10*3/uL 0.83-4.5 1 [facility] Lymphocytes/100 WBC Auto (Un sp spec)Ordered By: Jahaira Tai on 12-19-2024 Lymphocytes/100 WBC (Bld) 13.2 % Low 19-41 [facility] MCV (mean corpuscular volume ) determinationOrdered By: Jahaira Tai on 12-19-2024 MCV (RBC) [Entitic vol] 93.4 fL 81-99 [facility] Mean corpuscular hemoglobin (MCH) determinationOrdered By: Jahaira Tai on 12-19-2024 MCH (RBC) [Entitic mass] 32.8 pg High 27.0-32.0 [facility] Mean corpuscular hemoglobin concentration (MCHC) determinationOrdered By: Jahaira Tai on 12-19-2024 MCHC (RBC) [Mass/Vol] 35.1 g/dL 32-36 [facility] Mean platelet volume determi nationOrdered By: Jahaira Tai on 12-19-2024 Platelet mean volume (Bld) [Entitic vol] 9.9 fL 6.2-12.0 [facility] Monocyte percentageOrdered B y: Jahaira Tai on 12-19-2024 Monocytes/100 WBC (Bld) 6.8 % 0-10 [facility] Neisseria gonorrhoeae nuclei c acid detection by amplified probe techniqueOrdered By: Jahaira Tai on 03-06-2025 N. gonorrhoeae DNA JULITA+probe Ql (Unsp spec) Negative Negative [facility] Comment on above: Performed at: =[address] [id number] Director: Gertrudis Felipe MD, Phone: [phone] Neutrophil percentageOrdered By: Jahaira Tai on 12-19-2024 Neutrophils/100 WBC (Bld) 78.9 % High 47-70 [facility] No Panel InformationOrdered By: Jahaira Tai on 12-19-2024 HIV (1&2) Antibody Non-Reactive Nonreactive [facility] Comment on above: Non-ReactiveReactive Repeatedly reactive samples must be confirmed according to CDC recommended confirmatory algorithms. The subresults for either HIVAG or AHIV can be used as an aid in the selection of the confirmation algorithm for reactive samples.Send out specimens with Reactive results to [facility] for confirmation.Order the HIV antibody detection and differentiation: #[id number] Pap Smear Specimen Adequacy Comment . [facility] Comment on above: Satisfactory for keivn luation. Endocervical and/or squamous metaplasticcells (endocervical component) are present. Nucleated red blood cell per centageOrdered By: Jahaira Tai on 12-19-2024 Nucleated RBC/100 WBC (Bld) [Ratio] 0 % 0-5 [facility] Inspector Semiconductor Wafer Office Visit Reporton 12-19-2024 Inspector Semiconductor Wafer Office Visit Report [facility] [address], [address] [place] [address] OFFICE VISIT Date of Service: 12/19/24 MR#: [id number] Acct: [id number] Name: RAPHAEL SHEETS Rep #: [id number] : 2005 Provider: JANE Norton ams Age/Sex: 19/F [place] [facility] [place]: [place]igned Intake Vital Signs 04/07/24 08:46 12/19/24 08:41 Height 5 ft 4 in 5 ft 4 in Weight: 165 lb 168 lb 8 oz BMI 28.3 28.9 BP 102/60 114/77 Position Sitting Pulse 85 Temp 98.4 F Pulse Oximetry (%) 99 Intake Visit Reasons: New OB, LMP 10/12, BLANCA 07/19 Chief Complaint: New OB Is patient in pain?: No Allergies vancomycin Allergy (Verified 12/19/24 08:46) Hives Medications ???Medication ???Instructions ???Recorded ???Confirmed ???Type PNV 153-FA 400 mcg-om3 35 mg-dha tab PO 11/26/24 12/19/24 History 25 mg-epa 5 mg-fish oil chew tablet Last Menstrual Period: 10/12/24 : Yes PFSH PFSH Medical History Physical exam, pre-employment Surgical History Index teeth extracted Family History Grandmother Diabetes Maternal Heart disease Maternal Cancer, Onset Age: 63 Maternal Kidney Grandfather Diabetes Maternal Heart disease Maternal Cancer Maternal Prostate with Mets Social History adopted: No household members: spouse service: No current occupational status: employed 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[employer] current occupational exposures/hazards: No pets and animals: Yes pets and animals: dog(s) history of recent travel: No sexually active: Yes Smoking Status: Never smoker alcohol intake: current alcohol intake frequency: holidays/special occasions only details: not while substance use type: does not use well-balanced diet: about half the time caffeine: Yes Type: coffee Number of servings: 1 eating out: rarely or never during the past year weight has: remained stable what type of physical activity do you participate in: walking frequency: daily duration: 15-30 minutes/day yue/confucianism: Yarsanism seatbelt use: always do you feel safe at home: Yes additional social history: Felicita Zheng History 1 Elective abortions Hx Para 0 Spontaneous abortions Hx # Term Pregnancies Ectopic pregnancies Hx # Pregnancies Multiple births # of living children HPI New OB, LMP 10/12, BLANCA 07/19 Details: RAPHAEL SHEETS is a 19 year old who presents for New OB visit. OB Visit BLANCA Calculator Estimated Delivery Date Method Current WG Current Estimate 07/19/25 LMP (Certain) 9w 5d Other Estimates 07/14/25 Ultrasound #1 10w 3d Comments: HIV: Urine Culture: Sequential Screen: NIPT Screen: Estimated Due Date: 07/19/25 Expected Delivery Route/Plan Labor Preferences- CB/BF classes: [] labor support person: [] labor intervention preferences: [] pain management options preferred: [] cut cord/dad catch: [] : [] PP control planned: [] discussed possible routes of delivery and associated risks: [] special requests: [] Specific Issue/Plans Covid status: [] Flu vaccine: [] Tdap vaccine: [] Rhogam: [] LARC form signed: [] Problem list reviewed and updated with the most current plan of care details and appropriate orders placed. Relevant counseling for the gestational age provided. Continue routine care and follow up unless otherwise noted in visit notes/problem list details Initial Weight: 168 lb Date -???-???-???-???-?? ?-???-???-???-???-? ??-???-???- EGA Weight BP Urine Prot -???-???-???-???-?? ?-???-???-???-???-? ??-???-???- Glucose FHR FuHt Pres Dilation -???-???-???-???-?? ?-???-???-???-???-? ??-???-???- Effaced St Visit Note 12/19/24 -???-???-???-???-?? ?-???-???-???-???-? ??-???-???- 9w 5d 168 lb 8 oz (+8 oz) 114/77 -???-???-???-???-?? ?-???-???-???-???-? ??-???-???- 181 -???-???-???-???-?? ?-???-???-???-???-? ??-???-???- KW- CRL cons with dates. declines NIPT. Menstrual History Last Menstrual Period: 10/12/24 Reported LMP: definite Normal amount/duration: Yes Frequency in days: 28-30 On hormonal BC at conception: No hCG+: 11/17/24 Antepartum Record Genetic Screening: Congenital Heart Defect: Other, Neural Tube Defect: Other, Hemoglobinopathy Or Carrier: Other, Cystic Fibrosis: Other, Chromosome Abnormality: Other, Johnathan-Sachs: Other, Hemophilia: Other, Intellectual Disability/Autism: Other, Recurrent Loss/Stillbirth: Other, Other Structural Defect: Other, Other Genetic Disease (more content not included)... Normal [facility] Platelet countOrdered By: Scott Tai on 12-19-2024 Platelets (Bld) [#/Vol] 270 10*3/uL 150-450 [facility] RBC Auto (Bld) [#/Vol]Ordere d By: Jahaira Tai on 12-19-2024 RBC (Bld) [#/Vol] 4.12 10*6/uL Low 4.2-5.4 [facility] Rubella immune status determ ination by IgG antibody assayOrdered By: Jahaira Tai on 12-19-2024 Rubella IgG Antibody REAC Nonreactive [facility] Comment on above: Antibody Result: Int erpretationNon-Reactive: Non-ImmuneReactive: ImmuneThe following results were obtained with the [employer] Rubella IgG assay. Results from assays of other manufacturers cannot be used interchangeably. Service comment (Unsp spec) [Interp]Ordered By: Jahaira Tai on 12-19-2024 Pap Smear Comment (3) . . [facility] T. pallidum abOrdered By: Scott Tai on 12-19-2024 Syphilis Total Antibody Non-Reactive Nonreactiv e [facility] Type AND Screenon 12-19-2024 Ab SCREEN GEL Negative Normal [facility] Comment on above: Order Comment: PN Performed By: #### B TS, L501.9985, L7400.0353, L7000.1800, L3890.6006, L509.8002, L3890.6301, L3890.6102, L100.0100, M100.2200, L509.4006 #### [facility] Laboratory [address] [place], [address] Urine cultureOrdered By: Dell Tai on 12-19-2024 Bacteria identified Cx Nom (U) Culture exhibits no growth. [facility] White blood cell (WBC) count Ordered By: Jahaira Tai on 12-19-2024 WBC (Bld) [#/Vol] 13.6 10*3/uL High 4.4-11.0 [facility] CV ECHO COMPLETE 2 CV ECHO COMPLETE [facility] [address] [place], [place] [address] Patient: HERNANDEZ RAPHAEL RowlandJavid Phone#: : 2005 Age: 17 Gender: F Pt. Type: Out Account: [id number] Location: [facility] Ordering: ELLY PRATER Exam Date: 07/07/2022/14:21 Family Phys: Charge Code: [id number] Physician: Yates Order #: [id number] Dose#: PROCEDURE: ECHOCARDIOGRAM WITH DOPPLER AND COLOR FLOW HISTORY: Patient is a 88-year-old female with history of possible mitral valve disease INDICATIONS: Possible mitral valve disease,elevated CK COMPARISON: None. TECHNIQUE: A 2-D ultrasound, color spectral Doppler and M-mode evaluation of the heart and great vessels. PATIENT MEASUREMENTS: Height (in.): 64 BSA: 1.88 Weight (lbs.): 182 BP: 118/74 Scoop Machine Operator: ADDIE M MODE 2D MEASUREMENTS AND CALCULATIONS: LVIDd: 4.34 cm LVIDs: 2.75 cm IVSd: 0.82 cm LVPWd: 0.87 cm LVOT diam: 1.9 cm FS: 36.76 % Ao Root diam: 2.40 cm LA diam: 2.54 cm LA Volume Index: 14 mL/m2 LA A4 Area: 12.17 cm2 RA A4 Area: 13 cm2 RVDd: 3.35 cm TAPSE: 22 mm DOPPLER MEASUREMENTS AND CALCULATIONS MITRAL MV E MAX moshe: 0.97 m/s MV A MAX moshe: 0.38 m/s MV E-A ratio: 2.53 Lat Peak E' Moshe 20 cm/sec Continued Report - Page 2 of 3 Patient: RAPHAEL HERNANDEZ Phone#: : 2005 Age: 17 Gender: F Pt. Type: Out Account: [id number] Location: 052 Ordering: ELLY PRATER Exam Date: 07/07/2022/14:21 Family Phys: Charge Code: [id number] Physician: Yates Order #: [id number] Dose#: Septal Peak E' MOSHE 14 cm/sec E/E' lateral 5 E/E' medial 7 AORTIC Ao V2 max: 1.62 m/s Ao max P.53 mm[Hg] LV V1 Max 1.11 m/s LV V1 Max PG 4.89 mm[Hg] PULMONIC PA V2 Max 1.26 m/s PA Max PG 6.33 mm[Hg] TRICUSPID RVSP 2D/M-MODE AND COLOR FLOW LEFT VENTRICLE: Left ventricle is normal in size and thickness. Systolic ejection fraction is 60-65%. There are no regional wall motion abnormality seen. WALL MOTION: 1 - Basal anterior: Normal. 7 - Mid anterior: Normal. 13 - Apical anterior: Normal. 2 - Basal anteroseptal: Normal. 8 - Mid anteroseptal: Normal. 14 - Apical septal: Normal. 3 - Basal inferoseptal: Normal. 9 - Mid inferoseptal: Normal. 15 - Apical inferior: Normal. 4 - Basal inferior: Normal. 10-Mid inferior: Normal. 16 - Apical lateral: Normal. 5 - Basal inferolateral: Normal. 11-Mid inferolateral: Normal. 6 - Basal anterolateral: Normal. 12-Mid anterolateral: Normal. RIGHT VENTRICLE: Right ventricle is normal in size and systolic function LEFT ATRIUM: Left atrium is normal in size. RIGHT ATRIUM: Right atrium is normal in size. ATRIAL SEPTUM: There is no large interatrial shunt seen. PFO was not assessed. MITRAL VALVE: Mitral valve appears normal in structure. There is trivial regurgitation and no stenosis seen. TRICUSPID VALVE: Tricuspid valve appears normal in structure. There is trivial regurgitation and no stenosis seen. AORTIC VALVE: Aortic valve is trileaflet. There is no regurgitation or stenosis seen. PULMONIC VALVE: Pulmonic valve appears normal in structure. There is trivial pulmonic valve regurgitation AORTIC ROOT: Aortic root is normal in size. AORTIC ARCH: Aortic arch normal in size. DESC THORACIC AORTA: Descending aorta is normal in size. Doppler shows normal systolic and diastolic flow Continued Report - Page 3 of 3 Patient: RAPHAEL HERNANDEZ Phone#: : 2005 Age: 17 Gender: F Pt. Type: Out Account: [id number] Location: [facility] Ordering: ELLY PRATER Exam Date: 07/07/2022/14:21 Family Phys: Charge Code: [id number] Physician: Yates Order #: [id number] Dose#: IVC/SVC: IVC is normal in size with more than 50% collapse of inspiration. Estimated right atrial pressure is 3 mm Hg. PULMONARY VEINS: Normal pulmonic vein flow PERICARDIUM: There is no pericardial effusion seen CONCLUSION: 1. Left ventricle is normal in size and thickness. Systolic ejection fraction is 60-65% with normal wall motion. 2. There are no significant valvular dysfunction seen. 3. Right ventricle is normal in size and systolic function 4. TR velocity is inadequate to calculate for right ventricular systolic pressure. Dictated by: ADÁN HER MD on 07/08/2022 at 9:40 Approved by: ADÁN HER MD on 07/08/2022 at 9:53 Normal [facility] Complete Blood Count with Di fferentialon 06-13-2022 Basophils/100 WBC (Bld) 0.6 % 0 - 1 % [facility] Differential Complete Automated Msr [facility] Eosinophils/100 WBC (Bld) 0.60 % 0 - 3 % [facility] Erythrocyte distribution width (RBC) [Ratio] 11.7 % 0 - 14.4 % [facility] Hematocrit (Bld) [Volume fraction] 38.7 % 36 - 44 % [facility] Hemoglobin (Bld) [Mass/Vol] 13.2 g/dL 12 - 15 g/dl [facility] Immature granulocytes/100 WBC (Bld) 0.4 % [facility] Comment on above: Immature Granulocyte Percent includes promyelocytes, myelocytes, and metamyelocytes. IG% > 1.0 indicates a left shift is present. With automated differentials, bands are included in the neutrophil count and not in the Immature Granulocyte Percent. Interpretation and review of laboratory results Abnormal [facility] Lymphocytes/100 WBC (Bld) 22.8 % Low 24 - 44 % [facility] MCH (RBC) [Entitic mass] 31.2 pg 26 - 34 pg [facility] MCHC 34.1 % 31 - 37 % [facility] MCV (RBC) [Entitic vol] 91.5 fL 80 - 100 fl [facility] Monocytes/100 WBC (Bld) 6.40 % High 3 - 6 % [facility] Neutrophils (Bld) [#/Vol] 5.5 10*3/uL [facility] Neutrophils/100 WBC (Bld) 69.2 % High 35 - 66 % [facility] Nucleated RBC/100 WBC (Bld) [Ratio] 0 % -1 - 0 % [facility] Platelet mean volume (Bld) [Entitic vol] 10.5 fL [facility] Comment on above: MPV is platelet range and age dependent Platelets (Bld) [#/Vol] 220 10*3/uL [facility] RBC (Bld) [#/Vol] 4.23 10*6/uL [facility] WBC (Bld) [#/Vol] 8.0 10*3/uL [facility] Release to patient->[facility] Comprehensive metabolic pane yosef 06-13-2022 Albumin [Mass/Vol] 4.3 g/dL 3.5 - 5 g/dL [facility] ALP [Catalytic activity/Vol] 67 U/L 35 - 104 U/L [facility] ALT [Catalytic activity/Vol] 15 U/L 0 - 34 U/L [facility] AST [Catalytic activity/Vol] 28 U/L 0 - 31 U/L [facility] Comment on above: Hemolysis detected. Results may be falsely elevated. Interpret results with caution. Bilirubin [Mass/Vol] 0.4 mg/dL 0 - 1 mg/dL [facility] Calcium [Mass/Vol] 9.3 mg/dL 7.6 - 11 mg/dL [facility] Chloride [Moles/Vol] 106 mmol/L 96 - 10 8 mmol/L [facility] CO2 [Moles/Vol] 19.8 mmol/L Low 22 - 29 mmol/L [facility] Creatinine [Mass/Vol] 0.68 mg/dL 0.5 - 1 mg/dL [facility] Glucose [Mass/Vol] 90 mg/dL 70 - 99 mg/dL Msr [facility] Comment on above: Criteria for Diagnos is of Diabetes: Fasting Specimen (no caloric intake for at least 8 hours): <100 mg/dL Normal 100-125 mg/dL Increased risk for Diabetes >125 mg/dL Diagnostic for Diabetes Random Glucose (any time of day without regard to last meal): > or = 200 mg/dL plus Classic Symptoms of Diabetes Potassium [Moles/Vol] 4.5 mmol/L 3.3 - 5.1 mmol/L [facility] Comment on above: Hemolysis detected. Results may be falsely elevated. Interpret results with caution. Protein [Mass/Vol] 7.5 g/dL 5.9 - 8.4 g/dL [facility] Sodium [Moles/Vol] 139 mmol/L 133 - 145 mmol/L [facility] Urea nitrogen [Mass/Vol] 12 mg/dL 4 - 19 mg/d L [facility] Creatine Kinase (CK)on 06-13 CK [Catalytic activity/Vol] 237 U/L High 24 - 195 U/L [facility] Ferritinon 06-13-2022 Ferritin [Mass/Vol] 169 ng/mL 22 - 378 ng/mL [facility] Ironon 06-13-2022 % Saturation 20 % 13 - 59 % [facility] Iron [Mass/Vol] 62 ug/dL 30 - 160 ug/dL [facility] TIBC 304 ug/dL 228 - 428 ug/dL [facility] Lactic acidon 06-13-2022 Lactate [Moles/Vol] 0.9 mmol/L 0.5 - 2. 2 mmol/L [facility] Release to patient->[facility] No Panel Informationon 06-13 Interpretation and review of laboratory results Abnormal [facility] Release to patient->[facility] TSH with Reflex to T4, Freeo n 06-13-2022 TSH with reflex to T4, Free 1.42 [facility] Vitamin D 25 hydroxyon 06-13 25 [place] Vitamin D 29 ng/mL Low 30 - 100 ng/mL [facility] Comment on above: Reference ranges pro vided by [facility] Laboratory are based on Endocrine Society Guidelines: Level: Characterization < 21 ng/mL: Vitamin D deficiency 21-29 ng/mL: Suboptimal Vitamin D status 30-100 ng/mL: Optimal Vitamin D status >100 ng/mL: Potentially toxic Vitamin D effects PATRICK by IFAon 03-01-2021 PATRICK Pattern ANANOT Normal [facility] [facility] Comment on above: Performed By: #### A NAIFS #### [facility] [employer] [address] [place] [address] PATRICK Titer Normal Negative [facility] Comment on above: Result Comment: Nega tive Normal range : negatie at <1:80 serum dilution. Performed By: #### A NAIFS #### [facility] [employer] [address] [place] [address] Nuclear Ab IF (S) [Titer] Negative Normal Negative [facility] Comment on above: Performed By: #### A NAIFS #### [facility] [employer] [address] [place] [address] Vital Signs Date Time Vital Sign Value Performing Clinician Herminio gr 04-24-2025 12:59-0400 Body height 162.56 cm Yu YAO Work Phone: [facility] 04-24-2025 12:59-0400 Body mass index (BMI) [Ratio] 32.8 kg/m2 Yu YAO Work Phone: [facility] 04-24-2025 12:59-0400 Body weight 86.69 kg Yu YAO Work Phone: [facility] 04-24-2025 12:59-0400 Diastolic blood pressure 72 mm[Hg] Yu YAO Work Phone: [facility] 04-24-2025 12:59-0400 Systolic blood pressure 104 mm[Hg] Yu Castro RD MECHANICAL ENGINEER-C Work Phone: [facility] 04-11-2025 10:27-0400 Body height 162.[address] MECHANICAL ENGINEER-C Work Phone: [facility] 04-11-2025 10:27-0400 Body mass index (BMI) [Ratio] 32.1 kg/m2 Yu Castro RD MECHANICAL ENGINEER-C Work Phone: [facility] 04-11-2025 10:27-0400 Body weight 84.[address] MECHANICAL ENGINEER-C Work Phone: [facility] 04-11-2025 10:27-0400 Diastolic blood pressure 73 mm[Hg] Yu Castro RD MECHANICAL ENGINEER-C Work Phone: [facility] 04-11-2025 10:27-0400 Systolic blood pressure 110 mm[Hg] Yu Castro RD MECHANICAL ENGINEER-C Work Phone: [facility] 03-12-2025 15:07-0400 Body height 162.[address] MECHANICAL ENGINEER-C Work Phone: [facility] 03-12-2025 15:07-0400 Body mass index (BMI) [Ratio] 31.7 kg/m2 Yu Castro RD MECHANICAL ENGINEER-C Work Phone: [facility] 03-12-2025 15:07-0400 Body weight 83.[address] MECHANICAL ENGINEER-C Work Phone: [facility] 03-12-2025 15:07-0400 Diastolic blood pressure 70 mm[Hg] Yu Castro RD MECHANICAL ENGINEER-C Work Phone: [facility] 03-12-2025 15:07-0400 Systolic blood pressure 108 mm[Hg] Yu Castro RD MECHANICAL ENGINEER-C Work Phone: [facility] 02-12-2025 08:26-0400 Body mass index (BMI) [Ratio] 30.4 kg/m2 Yu Castro RD MECHANICAL ENGINEER-C Work Phone: [facility] 02-12-2025 08:26-0400 Body weight 80.[address] MECHANICAL ENGINEER-C Work Phone: [facility] 02-12-2025 08:26-0400 Diastolic blood pressure 72 mm[Hg] Yu Castro RD MECHANICAL ENGINEER-C Work Phone: [facility] 02-12-2025 08:26-0400 Systolic blood pressure 112 mm[Hg] Yu Castro RD MECHANICAL ENGINEER-C Work Phone: [phone] [place] [address] 01-15-2025 11:48-0400 Body mass index (BMI) [Ratio] 29.7 kg/m2 Yu Castro RD MECHANICAL ENGINEER-C Work Phone: [phone] [place] [address] 01-15-2025 11:48-0400 Body weight 78.[address] MECHANICAL ENGINEER-C Work Phone: 6([phone] [place] [address] 01-15-2025 11:48-0400 Diastolic blood pressure 72 mm[Hg] Yu Castro RD MECHANICAL ENGINEER-C Work Phone: [facility] 01-15-2025 11:48-0400 Systolic blood pressure 111 mm[Hg] Yu Castro RD MECHANICAL ENGINEER-C Work Phone: [facility] 12-19-2024 08:41-0500 Body height 162.[address] MECHANICAL ENGINEER-C Work Phone: [facility] 12-19-2024 08:41-0500 Body mass index (BMI) [Ratio] 28.9 kg/m2 Yu Castro RD MECHANICAL ENGINEER-C Work Phone: [facility] 12-19-2024 08:41-0500 Body weight 76.[address] MECHANICAL ENGINEER-C Work Phone: [phone] [place] [address] 12-19-2024 08:41-0500 Diastolic blood pressure 77 mm[Hg] Yu Castro RD MECHANICAL ENGINEER-C Work Phone: [facility] 12-19-2024 08:41-0500 Systolic blood pressure 114 mm[Hg] Yu Castro RD MECHANICAL ENGINEER-C Work Phone: [facility] Encounters Encounter Date Encounter Type Care Provider Facility Start: 04-24-2025 End: 04-24-[address] MECHANICAL ENGINEER Facility:[facility] Start: 04-24-2025 End: 04-24-2025 Patient encounter procedure Ashley Dorantes NP-C [facility] Work Phone: Start: 04-11-2025 End: 04-11-2025 Patient encounter procedure Joyce Nikolas LARA -[facility] Work Phone: Start: 04-11-2025 End: 04-11-[address] MECHANICAL ENGINEER-C Work Phone: -[facility] Start: 03-13-2025 End: 03-13-2025 ambulatory ELVIE CAGLE [facility] Start: 03-12-2025 End: 03-12-2025 Patient encounter procedure Ashley Dorantes NP-C -[facility] Work Phone: Start: 03-12-2025 End: 03-12-[address] MECHANICAL ENGINEER-C Work Phone: [facility] Work Phone: Start: 02-27-2025 End: 02-27-2025 ambulatory VIKY GALINDO [facility] Start: 02-12-2025 End: 02-12-2025 Patient encounter procedure Ashley Dorantes NP-C -[facility] Work Phone: Start: 02-12-2025 End: 02-12-[address] MECHANICAL ENGINEER [facility] Start: 01-15-2025 End: 01-15-[address] Viky Galindo MD -[facility] Work Phone: Start: 01-15-2025 End: 01-15-2025 ambulatory Viky Galindo Facility:[facility] Start: 12-19-2024 End: 12-19-2024 Patient encounter procedure Jahaira Tai [facility] Work Phone: Start: 12-19-2024 End: 12-19-2024 ambulatory Yu Castro NP-C Work Phone: [facility] Work Phone: Start: 12-19-2024 End: 12-19-2024 ambulatory Jahaira Tai Facility:[facility] Start: 10-04-2022 End: 10-04-2022 Subsequent hospital visit by physician Elly Prater MD Work Phone: [facility] [place] Comment on above: SHOP WELDER demyelination; Ankle weakness; Spasticity Start: 09-13-2022 End: 09-13-2022 ambulatory [facility] Start: 07-07-2022 End: 07-07-2022 ambulatory [facility] Start: 06-23-2022 End: 08-05-2022 ambulatory [facility] Start: 06-13-2022 End: 06-13-2022 Subsequent hospital visit by physician Elly Prater MD Work Phone: [facility] Comment on above: Ankle weakness SHOP WELDER demyelination; Migraine without aura and without status migrainosus, not intractable; Abnormal brain MRI; Yamilet syndrome; Nystagmus; Diplopia; 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 Procedures Date Procedure Procedure Detail Performing Clinician Start: 12-19-2024 Urine culture Yu THOMASONC Work Phone: Start: 12-19-2024 Hepatitis C antibody measurement Yu THOMASONC Work Phone: Comment on above: Reactive: Presumptiv e evidence of antibodies to HCV. Follow CDC recommendations for supplemental testing.Non-Reactive: Antibodies to HCV were not detected; does not exclude the possibility of exposure to HCVReactive Results are presumptive evidence of antibodies to HCV. Follow CDC recommendations for supplemental testing.Order confirmation testing: HCV Quant by PCR testing - HCVPCR #[id number] Non Reactive: < 0.8 Equivocal: >/= 0.8 to < 1.0 Reactive: >/= 1.0The CDC requires that a reactive/equivocal HCV antibody result be sent out for confirmation. HCV Quant by PCR testing. Start: 12-19-2024 Rubella IgG measurement Yu Mclainler RD MECHANICAL ENGINEER-C Work Phone: Comment on above: Antibody Result: Int erpretationNon-Reactive: Non- ImmuneReactive: ImmuneThe following results were obtained with the [employer] Rubella IgG assay. Results from assays of other manufacturers cannot be used interchangeably. Start: 12-19-2024 Serologic test for syphilis Yu Mclainler RD MECHANICAL ENGINEER-C Work Phone: Start: 12-19-2024 Liquid based cervica l cytology screening Yu Mclainler RD MECHANICAL ENGINEER-C Work Phone: Comment on above: NEGATIVE FOR INTRAEP ITHELIAL LESION OR MALIGNANCY. This liquid based Th inPrep(R) pap test was screened withthe use of an image guided system. The HPV DNA reflex c riteria were not met with this specimenresult therefore, no HPV testing was performed.Performed at: [address] [id number] Director: Gertrudis Felipe MD, Phone: [phone] Start: 06-13-2022 COMPLETE BLOOD COUNT WITH DIFFERENTIAL Elly Prater MD Work Phone: Start: 06-13-2022 Comprehensive metabo lic panel Elly Prater MD Work Phone: Plan of Treatment Date Care Activity Detail Author Start: 04-24-2025 CBC W Auto Different ial panel - Blood [facility] Start: 04-24-2025 Measurement of gluco se 2 hours after glucose challenge for glucose tolerance test [facility] Start: 04-24-2025 Serologic test for syphilis [facility] Start: 04-24-2025 [facility] Start: 06-13-2024 Comprehensive metabo lic 2000 panel - Serum or Plasma CMP [facility] Start: 06-13-2024 Thyrotropin [Units/v olume] in Serum or Plasma TSH [facility] Start: 06-13-2024 Vitamin D 25 Hydroxy Vitamin D 25 Hy droxy [facility] Start: 05-11-2023 Ophthalmic examinati on and evaluation Eye Exam [facility] Start: 12-20-2022 End: 12-20-2022 Patient encounter procedure 12/20/2022 Office Visit Ophthalmology Catarino Callahan MD [address], [place] [id number] [facility] Start: 12-19-2022 End: 12-19-2022 Patient encounter procedure 12/19/2022 Office Visit Physical Medicine [facility] Rehab Venita Washburn MD [place], [place] [id number] [facility] [place] Start: 09-19-2022 End: 09-19-2022 Patient encounter procedure Genetics - Jostin mathews Start: 08-19-2022 End: 08-19-2022 Patient encounter procedure 08/19/2022 Office Visit [facility] Venita Washburn MD [place], [place] [id number] [facility] Start: 06-16-2022 FLU (#1) FLU (#1) [facility] Start: 2021 Hearing Screening Hearing Screening [facility] Start: 2019 MenB (1 of 2 - MenB 2-Dose Series Bexsero) MenB (1 of 2 - MenB 2-Dose Series Bexsero) [facility] Start: 2019 MenB (1 of 2 - MenB 2-Dose Series) MenB (1 of 2 - MenB 2-Dose Series) [facility] Start: 2018 Vision Screening Vision Screening [facility] Start: 2014 HPV (1 - 2-dose series) HPV (1 - 2-d ose series) [facility] Start: 06-16-2013 Magnesium [Mass/volu me] in Serum or Plasma Magnesium [facility] Start: 2010 Tetanus Diphtheria a nd Pertussis Vaccines (1 - Tdap) Tetanus Diphtheria and Pertussis Vaccines (1 - Tdap) [facility] Start: 2004 MMR (1 of 1 - Standa rd series) MMR (1 of 1 - Standard series) [facility] Start: 2004 Varicella (1 of 2 - 2-dose childhood series) Varicella (1 of 2 - 2-dose childhood series) [facility] Start: 2003 COVID-19 (#1) COVID-19 (#1) [facility] Start: 2003 Microalbumin [Mass/v olume] in Urine by Test strip Urine Microalbumin [facility] Start: 2003 Audiology Visit Audiology Visit [facility] Start: 2003 Calcium, Urine Calcium, Urine [facility] Start: 2003 Creatinine, Urine Creatinine, Urine [facility] Start: 2003 Echocardiography Echocardiogram [facility] Start: 2003 Electrocardiogram EKG [facility] Start: 2003 Hemoglobin A1c/Hemoglobin.total in Blood HbA1c [facility] Start: 2003 Hepatitis B (1 of 3 - 3-dose series) Hepatitis B (1 of 3 - 3-dose series) [facility] Start: 2003 Phosphate [Mass/volu me] in Serum or Plasma Phosphorus [facility] Start: 2003 Phosphorus, Urine Phosphorus, Urine [facility] Start: 2003 PTH PTH [facility] CBC W Auto Different ial panel - Blood [facility] Erythrocyte mean corpuscular volume determination [facility] Genetic Sendout: Tri o Whole Exome Sequencing+ comprehensive mtDNA analysis Genetic Sendout: Trio Whole Exome Sequencing+ comprehensive mtDNA analysis Lab Routine SHOP WELDER demyelination Migraine without aura and without status migrainosus, not intractable Abnormal brain MRI Yamilet syndrome Nystagmus Diplopia 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 Work Phone: End: 06-13-2022 Growth Differentiation Factor 15,P [facility] Work Phone: Comment on above: 1 Occurrences starti ng 06/13/2022 until 06/13/2022 Hematocrit [Volume Fraction] of Blood [facility] Hemoglobin [Mass/vol ume] in Blood [facility] Leukocytes [#/volume ] in Blood [facility] Mean corpuscular hem oglobin concentration determination [facility] Mean corpuscular hem oglobin determination [facility] Measurement of gluco se 2 hours after glucose challenge for glucose tolerance test [facility] End: 10-04-2022 MR Brain WO and W contrast IV [facility] Work Phone: Comment on above: 1 Occurrences starti ng 10/04/2022 until 10/04/2022 End: 10-04-2022 MR Cervical and thoracic and lumbar spine WO and W contrast IV [facility] Work Phone: Comment on above: 1 Occurrences starti ng 10/04/2022 until 10/04/2022 Neutrophil count [facility] Neutrophil percent differential count [facility] Platelets [#/volume] in Blood [facility] Red blood cell count [facility] Red cell distributio n width determination [facility] Serologic test for syphilis [facility] Immunizations Immunization Date Immunization Notes Care Provider Adam tsai 08-30-2024 influenza, seasonal, injectable, preservative free Yu Castro RD MECHANICAL ENGINEER-C Work Phone: [facility] 03-04-2024 Hepatitis B vaccine (recombinant), CpG adjuvanted Yu Castro RD MECHANICAL ENGINEER-C Work Phone: [facility] 09-19-2022 influenza, injectabl e, quadrivalent, preservative free Elly Prater MD Work Phone: [facility] Payers Date Payer Category Payer Self-pay 2024 Unknown [id number] 2021 Unknown [id number] 2003 Unknown [id number] 2.16.84 [id number] 2003 Unknown [id number] 2.16.84 [id number] 2003 Unknown [id number] 2.16.84 [id number] 2003 Unknown [id number] 2.16. [id number] 2003 Unknown [id number] 2.16. [id number] Unknown [id number] 2.16.8 [id number] Unknown [id number] 2.16.8 [id number] Unknown [id number] 2.16.8 [id number] Unknown [id number] 2.16.8 [id number] Unknown [id number] 2.16.8 [id number] Unknown [id number] 2.16.8 [id number] Unknown [id number] 2.16.8 [id number] Social History Date Type Detail Facility Start: 05-03-2021 End: 11-26-2024 Tobacco smoking status NHIS Never smoked tobacco [facility] Start: 05-03-2021 End: 08-19-2022 Tobacco use and exposure Smokeless tobacco non-user [facility] Start: 2003 Sex Assigned At Not on file A [facility] Start: 06-03-2022 End: 10-04-2022 Exposure to SARS-CoV-2 (event) Not sure [facility] Start: 12-31-2024 Sex Female (finding) [facility] Start: 2003 Sex Assigned At Female [facility] Clinical Notes 12-19-2024 to 04-11-2025 Note Date & Type Note Facility 04-11-2025 Progress note [facility] 01-15-2025 Evaluation note Diagnosis Onset Date Resolution Anxiety acute January 15 11:46am Obesity affecting acute January 15, 2025 11:46am acute January 15 11:46am Supervision of normal first acute January 15, 2025 11:46am Contact dermatitis resolved January 15, 2025 11:46am Anxiety acute February 12 8:23am Obesity affecting acute February 12, 2025 8:23am acute February 12 8:23am Supervision of normal first acute February 12, 2025 8:23am Anxiety acute March 12, 2025 3:17pm Obesity affecting acute March 12, 2025 3 :17pm acute March 12, 2025 3:17pm Supervision of normal first acute March 12, 2025 3 :17pm Anxiety acute April 11 10:23am Obesity affecting acute April 11, 2025 10:23am acute April 11 10:23am Supervision of normal first acute April 11, 2025 10:23am Contact dermatitis resolved March 172024 10:23am Anxiety acute April 24 12:55pm Obesity affecting acute April 24, 2025 12:55pm acute April 24 12:55pm Supervision of normal first acute April 24, 2025 12:55pm [facility] Work Phone: [phone]) [phone] Evaluation note* Diagnosis Onset Date Resolution Status Admit Date Anxiety acute December 19 8:34am Contact dermatitis acute December 19, 2024 8:34am Obesity affecting acute December 19, 2024 8:34am acute December 19 8:34am Supervision of normal first acute December 19, 2024 8:34am [facility] Work Phone: 1(701) 793-726703-06-2025 Evaluation note* Diagnosis Onset Date Resolution Status Admit Date Anxiety acute December 19 8:34am Contact dermatitis acute December 19, 2024 8:34am Obesity affecting acute December 19, 2024 8:34am acute December 19 8:34am Supervision of normal first acute December 19, 2024 8:34am Anxiety acute January 15 11:46am Contact dermatitis acute January 15, 2025 11:46am Obesity affecting acute January 15, 2025 11:46am acute January 15 11:46am Supervision of normal first acute January 15, 2025 11:46am Anxiety acute February 12 8:23am Obesity affecting acute February 12, 2025 8:23am acute February 12 8:23am Supervision of normal first acute February 12, 2025 8:23am Anxiety acute March 12, 2025 3:17pm Obesity affecting acute March 12, 2025 3:17pm acute March 12, 2025 3:17pm Supervision of normal first acute March 12, 2025 3 :17pm [facility] Work Phone: 1(302) 924-148103-06-2025 Evaluation note* Diagnosis Onset Date Resolution Status Admit Date Anxiety acute December 19 8:34am Contact dermatitis acute December 19, 2024 8:34am Obesity affecting acute December 19, 2024 8:34am acute December 19 8:34am Supervision of normal first acute December 19, 2024 8:34am Anxiety acute January 15 11:46am Contact dermatitis acute January 15, 2025 11:46am Obesity affecting acute January 15, 2025 11:46am acute January 15 11:46am Supervision of normal first acute January 15, 2025 11:46am Anxiety acute February 12 8:23am Obesity affecting acute February 12, 2025 8:23am acute February 12 8:23am Supervision of normal first acute February 12, 2025 8:23am Anxiety acute March 12, 2025 3:17pm Obesity affecting acute March 12, 2025 3:17pm acute March 12, 2025 3:17pm Supervision of normal first acute March 12, 2025 3 :17pm Anxiety acute April 11 10:23am Contact dermatitis acute March 172024 10:23am Obesity affecting acute April 11, 2025 10:23am acute April 11 10:23am Supervision of normal first acute April 11, 2025 10:23am [facility] Work Phone: 1([phone]) 606-816403-06-2025 NotePap Smear Specimen AdequacyMarch 2024 10:27amComment.Satisfactory for evaluation. Endocervical and/or squamous metaplasticcells (endocervical component)are present.[facility] A#[id number] County HospitalComment on above:Satisfactory for evaluation. 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, unspecified Migraine without aura and without status migrainosus, not intractable Migraine without aura, without mention of intractable migraine without mention of status migrainosus Abnormal brain MRI Nonspecific (abnormal) findings on radiological and other examination of skull and head 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 Nystagmus Nystagmus, unspecified Diplopia 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 documented [facility] this [facility] Diagnosis SHOP WELDER demyelination Demyelinating disease of central nervous system, unspecified Ankle weakness Other symptoms referable to ankle and foot joint Spasticity Abnormal involuntary movements [facility] Author Joyce Connor [facility] Note Date/Time April 11, 2025 10:5 2am [facility] [address] [place] [address], [address] [place] [address] OFFICE VISIT Date of Service: 04/11/25 MR#: [id number] Acct: [id number] Name: MARYRAPHAEL DANG Rep #: [id number] 0 : 2005 Provider: JANE Connor Age/Sex: 20/F [place] [facility] [place]: Signed Intake Vital Signs 02/12/25 08:26 03/12/25 15:07 04/11/25 10:27 Height 5 ft 4 in 5 ft 4 in 5 ft 4 in Weight: 187 lb 6 oz BMI 32.1 BP 110/73 Intake Visit Reasons: 26 wk ob *rs 8/ appt* Chief Complaint: 26wk OB Core Maker Helper Required: No Is patient in pain?: No Allergies vancomycin Allergy (Verified 04/11/25 10:28) Hives Medications ?Medication ?Instructions ?Recorded ?Confirmed ?Type PNV 153-FA 400 mcg-om3 35 mg-dha tab PO 11/26/2404/11 History 25 mg-epa 5 mg-fish oil chew tablet Last Menstrual Period: 10/12/24 : No PFSH PFSH Surgical History Index teeth extracted Family History Grandmother Diabetes Maternal Heart disease Maternal Cancer, Onset Age: 63 Maternal Kidney Grandfather Diabetes Maternal Heart disease Maternal Cancer Maternal Prostate with Mets Social History adopted: No household members: spouse current occupational status: employed 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[employer] current occupational exposures/hazards: No pets and animals: Yes pets and animals: dog(s) history of recent travel: No sexually active: Yes Smoking Status: Never smoker alcohol intake: current alcohol intake frequency: holidays/special occasions only details: not while substance use type: does not use well-balanced diet: about half the time caffeine: Yes Type: coffee Number of servings: 1 eating out: rarely or never during the past year weight has: remained stable what type of physical activity do you participate in: walking frequency: daily duration: 15-30 minutes/day yue/confucianism: Yarsanism seatbelt use: always do you feel safe at home: Yes additional social history: Felicita Zheng History 1 Elective abortions Hx Para 0 Spontaneous abortions Hx # Term Pregnancies Ectopic pregnancies Hx # Pregnancies Multiple births # of living children HPI 26 wk ob *rs 8 appt* Details: RAPHAEL SHEETS is a 20 year old who presents for routine OB visit. OB Visit [facility] Calculator Estimated Delivery Date Method Current WG Current Estimate 07/19/25 LMP (Certain) 25w 6d Other Estimates 07/14/25 Ultrasound #1 26w 4d Expected Delivery Route/Plan Labor Preferences- CB/BF classes: enc. labor support person: [] labor intervention preferences: [] pain management options preferred: [] cut cord/dad catch: [] : [] PP control planned: [] discussed possible routes of delivery and associated risks: [] special requests: [] Specific Issue/Plans Covid status: [] Flu vaccine: [] Tdap vaccine: [] Rhogam: [] LARC form signed: [] Problem list reviewed and updated with the most current plan of care details and appropriate orders placed. Relevant counseling for the gestational age provided. Continue routine care and follow up unless otherwise noted in visit notes/problem list details Initial Weight: 168 lb Date -?-?-?-?-?-?-?-?-?-?-?-?- EGA Weight BP Urine Prot -?-?-?-?-?-?-?-?-?-?-?-?- Glucose FHR FuHt Pres Dilation -?-?-?-?-?-?-?-?-?-?-?-?- Effaced St Visit Note 12/19/24 -?-?-?-?-?-?-?-?-?-?-?-?- 9w 5d 168 lb 8 oz (+8 oz) 114/77 -?-?-?-?-?-?-?-?-?-?-?-?- 181 -?-?-?-?-?-?-?-?-?-?-?-?- KW- CRL cons wit h dates. declines NIPT. 01/15/25 -?-?-?-?-?-?-?-?-?-?-?-?- 13w 4d 173 lb 4 oz (+5 lb 4 oz) 111/72 Negative -?-?-?-?-?-?-?-?-?-?-?-?- Negative 150 -?-?-?-?-?-?-?-?-?-?-?-?- SM- no vb crmapi ng 02/12/25 -?-?-?-?-?-?-?-?-?-?-?-?- 17w 4d 177 lb (+9 lb) 112/72 Negative -?-?-?-?-?-?-?-?-?-?-?-?- Negative 155 -?-?-?-?-?-?-?-?-?-?-?-?- MH-NO VB. Feels well. Denies concerns 03/12/25 -?-?-?-?-?-?-?-?-?-?-?-?- 21w 4d 185 lb 2 oz (+17 lb 2 oz) 108/70 Negative -?-?-?-?-?-?-?-?-?-?-?-?- Negative 150 -?-?-?-?-?-?-?-?-?-?-?-?- MH-No VB. Feelin g flutters. 04/11/25 -?-?-?-?-?-?-?-?-?-?-?-?- 25w 6d 187 lb 6 oz (+19 lb 6 oz) 110/73 Negative -?-?-?-?-?-?-?-?-?-?-?-?- Negative 140 -?-?-?-?-?-?-?-?-?-?-?-?- LC- no vb/ctx/lo f. good fm. 28 week labs ordered. no concerns. ACOG First Trimester First Trimester: Discussed Second Trimester Second Trimester: Signs and Symptoms of Labor, Selecting a care provider, Reproductive Life Planning & Contreception, Care Planning, Depression/Anxiety and Intimate Partner Violence; Discussed Tobacco Cessation Third Trimester Third Trimester: Pain Management Plans, Labor support person(s), Immediate Larc, Signs and Symptoms of Preeclampsia, Infant Feeding No , Education and Family Medical Leave or Disability Forms ROS Const Reports system reviewed and no additional complaints, except as documented GI Denies nausea and Denies vomiting Denies urinary hesitancy and Denies urinary urgency Exam Const Orientation: alert, awake and oriented x3 Resp Effort & Inspection: normal respiratory effort, able to speak in complete sentences and symmetric chest movement GI Palpation: soft (gravid) OB/External & Speculum: other (fundus appriopriate for GA) Results POC Urinalysis 2 Dip (Clinic) Office Urine Glucose Negative Last Edit by Guadalupe Mcnulty on 04/11/25 10:36 Office Urine Protein Negative Last Edit by Guadalupe Mcnulty on 04/11/25 10:36 Coding Level of Care Code OB Routine Diagnoses Obesity affecting in second trimester, unspecified obesity type O99.212 Obesity type affecting : unspecified obesity Trimester: second trimester Anxiety F41.9 Encounter for supervision of normal first in second trimester Z34.02 Trimester: second trimester 25 weeks gestation of Z3A.25 Weeks of gestation: 25 weeks Irritant contact dermatitis due to oils L24.1 Contact dermatitis trigger: oil Contact dermatitis type: irritant Assessment and Plan Assessment and Plan (1) Obesity affecting : Status: Acute Qualifiers: Obesity type affecting : unspecified obesity Trimester: second trimester Qualified Code(s): O99.212 - Obesity complicating , second trimester Comment: HgbA1c (2) Anxiety: Status: Acute Comment: Mild (3) Supervision of normal first : Status: Acute Qualifiers: Trimester: second trimester Qualified Code(s): Z34.02 - Encounter for supervision of normal first , second trimester Comment: PRR, , BLANCA 07/19/25, Arun (4) : Status: Acute Qualifiers: Weeks of gestation: 25 weeks Qualified Code(s): Z3A.25 - 25 weeks gestation of Comment: discussed NIPT & Carrier testing-undecided, needs f/u anatomy in 2 weeks:completed. position still would not allow full visual of right hand and could not rule out webbing of fingers. No US follow up but check after delivery. (5) Contact dermatitis: Status: Acute Qualifiers: Contact dermatitis trigger: oil Contact dermatitis type: irritant Qualified Code(s): L24.1 - Irritant contact dermatitis due to oils and greases Orders: Orders POC Urinalysis 2 Dip (Clinic) Today Plan Details Additional Comments: ACOG trimester education reviewed and updated. see problem list details for updated plan management information and see below for orders placed at this visit. GA appropriate handout given. 04/11/25 1052 <Electronically signed by Joyce dykes CNM> Date _ Joyce Connor CNM Cosigner Signature: Date (if applicable) CC: ~ [facility] Work Phone: Reason for referral (narrative)No reason for referral information availableWAd[facility] Work Phone: Summary Purpose Family History Relationship Condition Age at Onset Recorded Date/T colten grandmother Diabetes mellitus Unknown Cardiac disease Unknown Malignant neoplasm 63 grandfather Diabetes mellitus Unknown Malignant neoplasm Unknown Advance Directives No Advanced Directives Records FoundNo Advanced Directives Records FoundNo Advanced Directives Records FoundNo Advanced Directives Records Found Reason for Referral Specialty Diagnoses / Procedures Referred By Pratibha escobar Referred To Contact Radiology Diagnoses SHOP WELDER demyelination Ankle weakness Spasticity Procedures MRI Brain With and Without Contrast AK MRI [place]RAIN [place] [address] Referral ID Status Reason Start Date Expiration Date Visits Re quested Visits Authorized [id number] Closed 09/22/2022 03/21/2023 1 1 Specialty Diagnoses / Procedures Referred By Pratibha escobar Referred To Contact Radiology Diagnoses SHOP WELDER demyelination Ankle weakness Spasticity Procedures MRI Total Spine with and without contrast AK MRI, CERV SPINE COMBO AK MRI, DORSAL SPINE COMBO [place] MRI, LUMBAR SPINE [place] [address] Referral ID Status Reason Start Date Expiration Date Visits Re quested Visits Authorized [id number] Closed 09/21/2022 03/20/2023 1 1 Chief Complaint and Reason for Visit Chief Complaint Admit Date New OB, LMP 10/12, BLANCA 07/19December 19, 025 8:34am Reason for Visit Admit Date Anxiety December 19, 2024 8:34 am Contact dermatitis December 19, 2024 8:34 am Obesity affecting December 19 025 8:34am December 19, 2024 8:34 am Supervision of normal first [facility] 2024 8:34am Chief Complaint Admit Date New OB, LMP 10/12, BLANCA 07/19December 19 025 8:34am 14 wks OB January 15, 2025 11:4 6am 18 wk ob February 12, 2025 8:2 3am 22 wk ob March 12, 2025 3:17p m Reason for Visit Admit Date Anxiety December 19, 2024 8:34 am Contact dermatitis December 19, 2024 8:34 am Obesity affecting December 19 8:34am December 19, 2024 8:34 am Supervision of normal first Ma [facility] 2024 8:34am Anxiety January 15, 2025 11:4 6am Contact dermatitis January 15, 2025 11:4 6am Obesity affecting January 15 11:46am January 15, 2025 11:4 6am Supervision of normal first Ap 2024 11:46am Anxiety February 12, 2025 8:2 3am Obesity affecting February 12, 2025 8:23am February 12, 2025 8:2 3am Supervision of normal first Ap 2024 8:23am Anxiety March 12, 2025 3:17p m Obesity affecting March 12 3:17pm March 12, 2025 3:17p m Supervision of normal first Ma y 2024 3:17pm Chief Complaint Admit Date New OB, LMP 10/12, BLANCA 07/19December 19 8:34am 14 wks OB January 15, 2025 11:4 6am 18 wk ob February 12, 2025 8:2 3am 22 wk ob March 12, 2025 3:17p m 26 wk ob *rs 8/7 appt* April 11, 2025 1 0:23am Reason for Visit Admit Date Anxiety December 19, 2024 8:34 am Contact dermatitis December 19, 2024 8:34 am Obesity affecting December 19 8:34am December 19, 2024 8:34 am Supervision of normal first Ma [facility] 2024 8:34am Anxiety January 15, 2025 11:4 6am Contact dermatitis January 15, 2025 11:4 6am Obesity affecting January 15 11:46am January 15, 2025 11:4 6am Supervision of normal first Ap 2024 11:46am Anxiety February 12, 2025 8:2 3am Obesity affecting February 12, 2025 8:23am February 12, 2025 8:2 3am Supervision of normal first Ap ril 2024 8:23am Anxiety March 12, 2025 3:17p m Obesity affecting March 12 3:17pm March 12, 2025 3:17p m Supervision of normal first Ma y 2024 3:17pm Anxiety April 11, 2025 10:2 3am Contact dermatitis April 11, 2025 10:2 3am Obesity affecting April 11 10:23am April 11, 2025 10:2 3am Supervision of normal first Ju ne 2024 10:23am Chief Complaint Admit Date 14 wks OB January 15, 2025 11:4 6am 18 wk ob February 12, 2025 8:2 3am 22 wk ob March 12, 2025 3:17p m 26 wk ob *rs 8/7 appt* April 11, 2025 1 0:23am INT LAB ORDERS April 24, 2025 12:4 2pm 28wk ob/glucose April 24, 2025 12:5 5pm Reason for Visit Admit Date Anxiety January 15, 2025 11:4 6am Obesity affecting January 15 11:46am January 15, 2025 11:4 6am Supervision of normal first Ap ril 2024 11:46am Contact dermatitis January 15, 2025 11:4 6am Anxiety February 12, 2025 8:2 3am Obesity affecting February 12, 2025 8:23am February 12, 2025 8:2 3am Supervision of normal first Ap ril 2024 8:23am Anxiety March 12, 2025 3:17p m Obesity affecting March 12 3:17pm March 12, 2025 3:17p m Supervision of normal first Ma y 2024 3:17pm Anxiety April 11, 2025 10:2 3am Obesity affecting April 11 10:23am April 11, 2025 10:2 3am Supervision of normal first Ju ne 2024 10:23am Contact dermatitis April 11, 2025 10:2 3am Anxiety April 24, 2025 12:5 5pm Obesity affecting April 24 2 025 12:55pm April 24, 2025 12:5 5pm Supervision of normal first Ju ly 2024 12:55pm Additional Source Comments INFORMATION SOURCE (unrecogn ized section and content) DATE CREATED AUTHOR 03/02/2021 [facility] DATE CREATED AUTHOR AUTHOR'S ORGANIZ ATION 09/13/2022 [facility] DATE CREATED AUTHOR AUTHOR'S ORGANIZ ATION 03/15/2025 [facility] DATE CREATED AUTHOR AUTHOR'S ORGANIZ ATION 04/17/2025 [facility] Care Teams (unrecognized sec tion and content) Neurodiagnostic Technician Relationship Specialty Start Date End Date Yu Castro, SENIOR QUALITY METHODS SPECIALIST-FLOORING MECHANIC [address] [place] [address] PCP - General Family Medicine 04/25/21 [place] [address] Attending Physician Pediatric Neurology 05/03/21 Ron Hernandez MD [address] [place], [place] [id number] Attending Physician Neurology 05/03/21 [place] [address] Attending Physician Medical Clinical Genetics 11/10/21 Neurodiagnostic Technician Relationship Specialty Start Date End Date Yu Castro, SENIOR QUALITY METHODS SPECIALIST-FLOORING MECHANIC [address] [place] [address] PCP - General Family Medicine 04/25/21 Elly Prater MD [place], [place] [id number] Attending Physician Pediatric Neurology 05/03/21 Ron Hernandez MD [address] [place], [place] [address] Attending Physician Neurology 05/03/21 Leydi Gupta MD [facility] [place] [place] [address] Attending Physician Medical Clinical Genetics 11/10/21 Neurodiagnostic Technician Relationship Specialty Start Date End Date Yu Castro, SENIOR QUALITY METHODS SPECIALIST-FLOORING MECHANIC [address] [place] [address] PCP - General Family Medicine 04/25/21 Elly Prater MD [facility] [place] [address] Attending Physician Pediatric Neurology 05/03/21 Ron Hernandez MD [address] [place] [address] Attending Physician Neurology 05/03/21 Leydi Gupta MD [facility] [place] [address] Attending Physician Medical Clinical Genetics 11/10/21 Neurodiagnostic Technician Relationship Specialty Start Date End Date Yu Castro, SENIOR QUALITY METHODS SPECIALIST-FLOORING MECHANIC [address] [place] [address] PCP - General Family Medicine 04/25/21 Elly Prater MD [facility] [place] [address] Attending Physician Pediatric Neurology 05/03/21 Ron Hernandez MD [address] [place] [address] Attending Physician Neurology 05/03/21 Leydi Gupta MD [facility] [place] [address] Attending Physician Medical Clinical Genetics 11/10/21 Team Status: Active Member Role Status Dates Yu Castro RD MECHANICAL ENGINEER, RD MECHANICAL ENGINEER-C Primary Care Provider Active Team Status: Inactive Member Role Status Dates Yu Castro NP, RD MECHANICAL ENGINEER-C Primary Care Provider Active Start: December 19, 2024 End: December 19, [address] MECHANICAL ENGINEER, RD MECHANICAL ENGINEER-C Referring Provider Active Start: December 19, 2024 End: December 19, 2024 Jahaira Tai CNM Attending Provider Active S tart: December 19, 2024 End: December 19, 2024 Team Status: Inactive Member Role Status Dates Yu Castro NP, RD MECHANICAL ENGINEER-C Primary Care Provider Active Start: December 19, 2024 End: December 19, 2024 Jahaira Tai CNM Attending Provider Active S tart: December 19, 2024 End: December 19, 2024 Jahaira Tai CNM Referring Provider Active S tart: December 19, 2024 End: December 19, 2024 Team Status: Inactive Member Role Status Dates Yu Castro RD MECHANICAL ENGINEER, RD MECHANICAL ENGINEER-C Primary Care Provider Active Start: January 15, 2025 End: January 15, [address] MECHANICAL ENGINEER, RD MECHANICAL ENGINEER-C Referring Provider Active Start: January 15, 2025 End: January 15, 2025 Dr. Viky Galindo MD Attending Provider Active Start: January 15, 2025 End: January 15, 2025 Team Status: Inactive Member Role Status Dates Yu Castro NP, RD MECHANICAL ENGINEER-C Primary Care Provider Active Start: February 12, 2025 End: February 12, [address] MECHANICAL ENGINEER, RD MECHANICAL ENGINEER-C Referring Provider Active Start: February 12, 2025 End: February 12, 2025 Ashley Dorantes NP, RD MECHANICAL ENGINEER-C Attending Provider Active Start: February 12, 2025 End: February 12, 2025 Team Status: Inactive Member Role Status Dates Yu Castro NP, RD MECHANICAL ENGINEER-C Primary Care Provider Active Start: March 12, 2025 End: March 12, 2025 Yu Castro NP, RD MECHANICAL ENGINEER-C Referring Provider Active Start: March 12, 2025 End: March 12, 2025 Ashley Dorantes NP, RD MECHANICAL ENGINEER-C Attending Provider Active Start: March 12, 2025 End: March 12, 2025 Team Status: Active Member Role/Relationship Status Dates Yu Castro NP, RD MECHANICAL ENGINEER-C Primary Care Provider Active Team Status: Inactive Member Role/Relationship Status Dates Yu Castro NP, RD MECHANICAL ENGINEER-C Primary Care Provider Active Start: December 19, 2024 End: December 19, 2024 Yu Castro NP, RD MECHANICAL ENGINEER-C Referring Provider Active Start: December 19, 2024 End: December 19, 2024 Jahaira Tai CNM Attending Provider Active S tart: December 19, 2024 End: December 19, 2024 Team Status: Inactive Member Role/Relationship Status Dates Yu Castro RD MECHANICAL ENGINEER, RD MECHANICAL ENGINEER-C Primary Care Provider Active Start: December 19, 2024 End: December 19, 2024 Jahaira Tai CNM Attending Provider Active S tart: December 19, 2024 End: December 19, 2024 Jahaira Tai CNM Referring Provider Active S tart: December 19, 2024 End: December 19, 2024 Team Status: Inactive Member Role/Relationship Status Dates Yu Castro NP, RD MECHANICAL ENGINEER-C Primary Care Provider Active Start: January 15, 2025 End: January 15, [address] MECHANICAL ENGINEER, RD MECHANICAL ENGINEER-C Referring Provider Active Start: January 15, 2025 End: January 15, 2025 Dr. Viky Galindo MD Attending Provider Active Start: January 15, 2025 End: January 15, 2025 Team Status: Inactive Member Role/Relationship Status Dates Yu Castro RD MECHANICAL ENGINEER, RD MECHANICAL ENGINEER-C Primary Care Provider Active Start: February 12, 2025 End: February 12, [address] MECHANICAL ENGINEER, RD MECHANICAL ENGINEER-C Referring Provider Active Start: February 12, 2025 End: February 12, [address] MECHANICAL ENGINEER, RD MECHANICAL ENGINEER-C Attending Provider Active Start: February 12, 2025 End: February 12, 2025 Team Status: Inactive Member Role/Relationship Status Dates Yu Castro NP, RD MECHANICAL ENGINEER-C Primary Care Provider Active Start: March 12, 2025 End: March 12, [address] MECHANICAL ENGINEER, RD MECHANICAL ENGINEER-C Referring Provider Active Start: March 12, 2025 End: March 12, 2025 Ashley Dorantes NP, RD MECHANICAL ENGINEER-C Attending Provider Active Start: March 12, 2025 End: March 12, 2025 Team Status: Inactive Member Role/Relationship Status Dates Yu Castro NP, RD MECHANICAL ENGINEER-C Primary Care Provider Active Start: April 11, 2025 End: April 11, [address] MECHANICAL ENGINEER, RD MECHANICAL ENGINEER-C Referring Provider Active Start: April 11, 2025 End: April 11, 2025 Joyce Connor CNM Attending Provider Active Start: April 11, 2025 End: April 11, 2025 Team Status: Inactive Member Role/Relationship Status Dates Yu Castro RD MECHANICAL ENGINEER, RD MECHANICAL ENGINEER-C Primary Care Provider Active Start: January 15, 2025 End: January 15, [address] MECHANICAL ENGINEER, RD MECHANICAL ENGINEER-C Referring Provider Active Start: January 15, 2025 End: January 15, 2025 Dr. Viky Galindo MD Attending Provider Active Start: January 15, 2025 End: January 15, 2025 Team Status: Inactive Member Role/Relationship Status Dates Yu Castro RD MECHANICAL ENGINEER, RD MECHANICAL ENGINEER-C Primary Care Provider Active Start: February 12, 2025 End: February 12, [address] MECHANICAL ENGINEER, RD MECHANICAL ENGINEER-C Referring Provider Active Start: February 12, 2025 End: February 12, [address] MECHANICAL ENGINEER, RD MECHANICAL ENGINEER-C Attending Provider Active Start: February 12, 2025 End: February 12, 2025 Team Status: Inactive Member Role/Relationship Status Dates Yu Castro RD MECHANICAL ENGINEER, RD MECHANICAL ENGINEER-C Primary Care Provider Active Start: March 12, 2025 End: March 12, [address] MECHANICAL ENGINEER, RD MECHANICAL ENGINEER-C Referring Provider Active Start: March 12, 2025 End: March 12, 2025 Ashley Doratnes NP, RD MECHANICAL ENGINEER-C Attending Provider Active Start: March 12, 2025 End: March 12, 2025 Team Status: Inactive Member Role/Relationship Status Dates Yu Castro NP, RD MECHANICAL ENGINEER-C Primary Care Provider Active Start: April 11, 2025 End: April 11, 2025 Yu Castro NP, RD MECHANICAL ENGINEER-C Referring Provider Active Start: April 11, 2025 End: April 11, 2025 Joyce Connor CNM Attending Provider Active Start: April 11, 2025 End: April 11, 2025 Team Status: Active Member Role/Relationship Status Dates Yu Castro NP, RD MECHANICAL ENGINEER-C Primary Care Provider Active Start: April 24, 2025 Joyce Connor CNM Attending Provider Active Start: April 24, 2025 Joyce Connor CNM Referring Provider Active Start: April 24, 2025 Team Status: Inactive Member Role/Relationship Status Dates Yu Castro NP, RD MECHANICAL ENGINEER-C Primary Care Provider Active Start: April 24, 2025 End: April 24, 2025 Yu Castro NP, RD MECHANICAL ENGINEER-C Referring Provider Active Start: April 24, 2025 End: April 24, 2025 Ashley Dorantes NP, RD MECHANICAL ENGINEER-C Attending Provider Active Start: April 24, 2025 End: April 24, 2025 Reason for Visit (unrecogniz ed section and content) Specialty Diagnoses / Procedures Referred By Pratibha escobar Referred To Contact Radiology Diagnoses SHOP WELDER demyelination Ankle weakness Spasticity Procedures MRI Brain With and Without Contrast AK MRI BRAIN COMBO Elly Prater MD [place] [id number] Referral ID Status Reason Start Date Expiration Date Visits Re quested Visits Authorized [id number] Closed 09/22/2022 03/21/2023 1 1 Specialty Diagnoses / Procedures Referred By Pratibha escobar Referred To Contact Radiology Diagnoses SHOP WELDER demyelination Ankle weakness Spasticity Procedures MRI Total Spine with and without contrast AK MRI, CERV SPINE COMBO AK MRI, DORSAL SPINE COMBO [place] MRI, LUMBAR SPINE [place] [address] Referral ID Status Reason Start Date Expiration Date Visits Re quested Visits Authorized [id number] Closed 09/21/2022 03/20/2023 1 1 Goals (unrecognized section and content) Goals may be documented in a n alternate sectionGoals may be documented in an alternate sectionGoals may be documented in an alternate sectionGoals may be documented in an alternate section FOR RECORDS PERTAINING TO PATIENTS WHO ARE OR HAVE BEEN ENROLLED IN A CHEMICAL DEPENDENCY/SUBSTANCEABUSE PROGRAM, SOME INFORMATION MAY BE OMITTED. This clinical summary was aggregated from multiple sources. Caution should be exercised in using it in the provision of clinical care. This summary normalizes information from multiple sources, and as a consequence, information in this document may materially change the coding, format and clinical context of patient data. In addition, data may be omitted in some cases. CLINICAL DECISIONS SHOULD BE BASED ON THE PRIMARY CLINICAL RECORDS. [employer] provides no warranty or guarantee of the accuracy or completeness of information in this document.
== END | disposition home or self-care (01) ==
LOC: LAB 12:43
PROVIDERS: PCP Nurse Practitioner Family; Referring Provider Registered Nurse; Visit Provider Registered Nurse
DX: Z34.02 Encounter for supervision of normal first pregnancy, second trimester (principal); Z3A.25 25 weeks gestation of pregnancy; Z13.1 Encounter for screening for diabetes mellitus
CPT/HCPCS: 36415; 82950; 85025; 86703; 86780

== ENCOUNTER → 2025-06-27 | Outpatient (CLI) | payer OTHER, SELFPAY | END | disposition home or self-care (01) | LOC: LABSPEC 16:20 | PROVIDERS: PCP Nurse Practitioner Family; Referring Provider Advanced Practice Midwife; Visit Provider Advanced Practice Midwife | DX: Z34.03 Encounter for supervision of normal first pregnancy, third trimester (principal); Z3A.36 36 weeks gestation of pregnancy | CPT/HCPCS: 87081 ==

== ENCOUNTER 2025-07-13 04:59 | Outpatient (CLI) | payer OTHER, SELFPAY ==
--- OUTSIDE RECORDS SUMMARY | 2025-03-13 10:44 | XMS RPT_ITS ---
Author Name Auto Generated Organization [facility] Care Team Providers Care Door Clamper Name Role Phone ASHLEY DORANTES Referring Unavailable ELVIE CAGLE Attending Unavailable BALJEET CASTRO Primary Care Unavailable LANE GALINDO Referring Unavailabl e BALJEET CASTRO Primary Care Unavailable VICTOR M CAMERON Attending Unavailable PROBLEMS No Problem Records Found PROCEDURES No Procedure Records Found RESULTS No Result Records Found ALLERGIES DATE TYPE / CODE NAME / CODE REACTION SEVERITY SOURCE 03/26/2021 DRUG INGREDI/[id number](SN OMED CT) [facility] ENCOUNTERS ADMIT/DISCHARGE ACCOUNT NUMBER ADMITTING ENCOUNTER CLASS LOCATION SOURCE 03/13/2025/03/13/2025 [id number] Ambulatory Malave lding:[facility] 02/27/2025/02/27/2025 [id number] Ambulatory Malave lding:[facility] PAYERS ENCOUNTER GUARANTOR PAYER SUBSCRIBER SOURCE 03/13/2025 RAPHAEL LARA: [address] [address]Akr: ~[phone] (HP) Primary Insurance:[employer] EPolicy Number: [id number] ctive Date: TORRI BECKETT: [id number] [address] [address] [facility] 02/27/2025 RAPHAEL LARA: [address] [address]Dvn: ~[phone] (HP) Primary Insurance:[employer] EPolicy Number: [id number] ctive Date: TORRI BECKETT: [id number] [address] [address] [facility]
[2025-07-13 05:09] VITALS: BMI 35.9
[2025-07-13 05:20] VITALS: BP 128/81; PULSE 103
[2025-07-13 05:21] VITALS: TEMP 36.6
[2025-07-13 07:37] VITALS: BP 121/75; PULSE 91; TEMP 37; O2SAT 99
--- NOTE | 2025-07-20 11:12 | OB.TRI.NOTE ---
HPI - General General Date of Service: 07/13/25 Chief Complaint: Contractions HPI Narrative RAPHAEL SHEETS, is a 20 F who presents to labor delivery with some labor. She denies any leaking of fluid or bleeding. [facility] Home Medications Medication Instructions Recorded Last Taken Type PNV 153-FA 400 mcg-om3 35 mg-dha 1 tab PO DAILY 11/26/24 07/12/25 12:00 History 25 mg-epa 5 mg-fish oil chew tablet 1 TAB breast pump #1 ea 05/22/25 Unknown Rx Allergy/AdvReac Type Severity Reaction Status Date / Time vancomycin Allergy Hives Verified 07/13/25 10:57 Family History Grandmother Diabetes Maternal Heart disease Maternal Cancer, Onset Age: 63 Maternal Kidney Grandfather Diabetes Maternal Heart disease Maternal Cancer Maternal Prostate with Mets Surgical History [place] teeth extracted Social History adopted: No household members: spouse current occupational status: employed current occupation: [place]- [employer] current occupational exposures/hazards: No pets and animals: Yes pets and animals: dog(s) history of recent travel: No sexually active: Yes Smoking Status: Never smoker alcohol intake: current alcohol intake frequency: holidays/special occasions only details: not while substance use type: does not use well-balanced diet: about half the time caffeine: Yes Type: coffee Number of servings: 1 eating out: rarely or never during the past year weight has: remained stable what type of physical activity do you participate in: walking frequency: daily duration: 15-30 minutes/day yue/scientologist: Sabianism seatbelt use: always do you feel safe at home: Yes additional social history: Arun- Diversity Manager History 1 Elective abortions Hx Para 0 Spontaneous abortions Hx # Term Pregnancies Ectopic pregnancies Hx # Pregnancies Multiple births # of living children 1 Past Pregnancies Del. Date Name GA/Weeks Outcome Route Bth Weight Gen Labor Lgth Anesthesia Del Locatn Provider FOB 07/13/25 Cam 39 live - full term Male epidural WC Feliciano Mullins NST FHR Rate Baby A NST Reactive:: Yes Assessment & Plan (1) False labor, antepartum: COMMENT: Term intrauterine with some false labor. Patient observed and cervix did not change. Discharged to home with routine instructions. Reactive nonstress test. Return when labor ensues.
== END 2025-07-13 07:55 | disposition home or self-care (01) ==
LOC: WPOUT 05:04 → WP 05:04
PROVIDERS: PCP Nurse Practitioner Family; Referring Provider Obstetrics & Gynecology; Visit Provider Obstetrics & Gynecology
DX: Z00.00 Encounter for general adult medical examination without abnormal findings (principal)

== ENCOUNTER 2025-07-13 11:23 | Inpatient (IN) | payer OTHER, SELFPAY ==
--- OUTSIDE RECORDS SUMMARY | 2025-03-13 10:44 | XMS RPT_ITS ---
Author Name Auto Generated Organization [facility] Care Team Providers Care Typewriter Aligner Name Role Phone LANE GALINDO Referring Unavailabl e VICTOR M CAMERON Attending Unavailable BALJEET CASTRO Primary Care Unavailable ELVIE CAGLE Attending Unavailable ASHLEY DORANTES Referring Unavailable BALJEET CASTRO Primary Care Unavailable PROBLEMS No Problem Records Found PROCEDURES No Procedure Records Found RESULTS No Result Records Found ALLERGIES DATE TYPE / CODE NAME / CODE REACTION SEVERITY SOURCE 03/26/2021 DRUG INGREDI/[id number](SN OMED CT) [facility] ENCOUNTERS ADMIT/DISCHARGE ACCOUNT NUMBER ADMITTING ENCOUNTER CLASS LOCATION SOURCE 03/13/2025/03/13/2025 [id number] Ambulatory Malave lding:[facility] 02/27/2025/02/27/2025 [id number] Ambulatory Malave lding:[facility] PAYERS ENCOUNTER GUARANTOR PAYER SUBSCRIBER SOURCE 03/13/2025 RAPHAEL LARA: [address] [address]Sjk: ~[phone]) Primary Insurance:[employer] EPolicy Number: [id number] ctive Date: TORRI BECKETT: [id number] [address] [address] [facility] 02/27/2025 RAPHAEL LARA: [address] [address]Dit: ~[phone]) Primary Insurance:[employer] EPolicy Number: [id number] ctive Date: TORRI BECKETT: [id number] [address] [address] [facility]
--- OUTSIDE RECORDS SUMMARY | 2025-03-13 10:44 | XMS RPT_ITS ---
Author Name Auto Generated Organization [facility] Care Team Providers Care Income Tax Preparer Name Role Phone LANE GALINDO Referring Unavailabl e VICTOR M CAMERON Attending Unavailable BALJEET CASTRO Primary Care Unavailable ELVIE CAGLE Attending Unavailable ASHLEY DORANTES Referring Unavailable BALJEET CASTRO Primary Care Unavailable PROBLEMS No Problem Records Found PROCEDURES No Procedure Records Found RESULTS No Result Records Found ALLERGIES DATE TYPE / CODE NAME / CODE REACTION SEVERITY SOURCE 03/26/2021 DRUG INGREDI/[id number](SN OMED CT) [facility] ENCOUNTERS ADMIT/DISCHARGE ACCOUNT NUMBER ADMITTING ENCOUNTER CLASS LOCATION SOURCE 03/13/2025/03/13/2025 [id number] Ambulatory Malave lding:[facility] 02/27/2025/02/27/2025 [id number] Ambulatory Malave lding:[facility] PAYERS ENCOUNTER GUARANTOR PAYER SUBSCRIBER SOURCE 03/13/2025 RAPHAEL LARA: [address] [address]Bpk: ~[phone]) Primary Insurance:[employer] EPolicy Number: [id number] ctive Date: TORRI BECKETT: [id number] [address] [address] [facility] 02/27/2025 RAPHAEL LARA: [address] [address]Sbp: ~[phone] (HP) Primary Insurance:[employer] EPolicy Number: [id number] ctive Date: TORRI BECKETT: [id number] [address] [address] [facility]
[2025-07-13] VITALS (56 sets, daily range): BP systolic 103–147; BP diastolic 54–81; PULSE 76–118; RESP 16; TEMP 36.3–37.2; O2SAT 90–100; BMI 35.9
[2025-07-13] MEDS: Lactated Ringers 1,000 ML 999 ML IV (11:50)
[2025-07-13 11:52] LABS: ROM Internal Control Test YES-OK TO RESULT pt. (Internal QC)
[2025-07-13 11:53] LABS: ROM Patient Test POSITIVE (Negative); Record Kit Lot#, ROM+ K3358
[2025-07-13] MEDS: fentaNYL 100 MCG/2 ML Ampul IV (11:59)
[2025-07-13 12:07] LABS: Hematocrit 35.7 % (37-47); Hemoglobin 12.9 g/dL (12.0-15.0); Immature Granulocytes Count 0.230 X10^3/uL (0.0-0.0); Mean Corp Hgb Conc 36.1 g/dL (32-36); Mean Corpuscular Volume 91.8 fL (81-99); Mean Platelet Vol. 10.2 fl (6.2-12.0); NRBC Flagged by Analyzer 0 % (0-5); Platelet Count 224 K/mm3 (150-450); RBC Distribution Width CV 12.1 % (11.6-14.6); RBC Distribution Width SD 40.3 fl (35.1-43.9); Red Blood Count 3.89 M/mm3 (4.2-5.4); White Blood Count 13.9 K/mm3 (4.4-11.0)
[2025-07-13 12:35] LABS: Syphilis Antibodies Nonreactive (Nonreactive)
[2025-07-13] MEDS: Lactated Ringers 1,000 ML 50 ML IV (12:49)
[2025-07-13] MEDS: fentaNYL-bupivacaine (epidural) 100 ML BAG EPIDURAL (13:27)
[2025-07-13] MEDS: Lidocaine 1% (20 ml mdv) 20 ML Vial INFILT (14:33)
[2025-07-13] MEDS: Oxytocin 15 Units/NS 250ml 15 UNITS/250 ML IV.SOLN 334 UNITS IV (14:48)
--- NOTE | 2025-07-13 14:58 | HP.PCM.OB_ITS ---
HPI - General General Date of Admission: 07/13/25 HPI Narrative RAPHAEL SHEETS, is a 20 F G1, P0 who presents to labor and delivery at 39 weeks gestation in active labor. care has been uneventful. She was here earlier today but was sent home because her cervix did not change. She presented back to labor delivery with a significant cervical change and rupture membranes. Maternal Data Information BLANCA Calculator Estimated Delivery Date Method Current WG Current Estimate 07/19/25 LMP (Certain) 39w 1d Other Estimates 07/14/25 Ultrasound #1 39w 6d PFSH PFSH Home Medications ?Medication ?Instructions ?Recorded ?Last Taken ?Type PNV 153-FA 400 mcg-om3 35 mg-dha 1 tab PO DAILY 07/12/25 12:00 History 25 mg-epa 5 mg-fish oil chew tablet 1 TAB breast pump #1 ea 05/22/25 Unknown Rx Allergy/AdvReac Type Severity Reaction Status Date / Time vancomycin Allergy Hives Verified 07/13/25 10:57 Family History Grandmother Diabetes Maternal Heart disease Maternal Cancer, Onset Age: 63 Maternal Kidney Grandfather Diabetes Maternal Heart disease Maternal Cancer Maternal Prostate with Mets Surgical History [place] teeth extracted Social History adopted: No household members: spouse current occupational status: employed 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- [employer] current occupational exposures/hazards: No pets and animals: Yes pets and animals: dog(s) history of recent travel: No sexually active: Yes Smoking Status: Never smoker alcohol intake: current alcohol intake frequency: holidays/special occasions only details: not while substance use type: does not use well-balanced diet: about half the time caffeine: Yes Type: coffee Number of servings: 1 eating out: rarely or never during the past year weight has: remained stable what type of physical activity do you participate in: walking frequency: daily duration: 15-30 minutes/day yue/voodoo: Jew seatbelt use: always do you feel safe at home: Yes 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 labor support person: Arun labor intervention preferences: [] pain management options preferred: epidural cut cord/dad catch: maybe : yes PP control planned: discussed discussed possible routes of delivery and associated risks: [] special requests: [] Plans Covid status: [] Flu vaccine: [] Tdap vaccine: given Rhogam: na LARC form signed: yes movement and labor precautions reviewed. Problem list reviewed and updated with the most current plan of care details and appropriate orders placed. Relevant counseling for the gestational age provided. Continue routine care and follow up unless otherwise noted in visit notes/problem list details OB Flowsheet Initial Weight: 168 lb Date -?-?-?-?-?-?-?-?-?-?-?-?- EGA Weight BP Urine Prot -?-?-?-?-?-?-?-?-?-?-?-?- Glucose FHR FuHt Pres Dilation -?-?-?-?-?-?-?-?-?-?-?-?- Effaced St Visit Note 12/19/24 -?-?-?-?-?-?-?-?-?-?-?-?- 9w 5d 168 lb 8 oz (+8 oz) 114/77 -?-?-?-?-?-?-?-?-?-?-?-?- 181 -?-?-?-?-?-?-?-?-?-?-?-?- KW- CRL cons wit h dates. declines NIPT. 01/15/25 -?-?-?-?-?-?-?-?-?-?-?-?- 13w 4d 173 lb 4 oz (+5 lb 4 oz) 111/72 Negative -?-?-?-?-?-?-?-?-?-?-?-?- Negative 150 -?-?-?-?-?-?-?-?-?-?-?-?- SM- no vb crmapi ng 02/12/25 -?-?-?-?-?-?-?--?-?-?-?-?- 17w 4d 177 lb (+9 lb) 112/72 Negative -?-?-?-?-?-?-?-?-?-?-?-?- Negative 155 -?-?-?-?-?-?-?-?-?-?-?-?- MH-NO VB. Feels well. Denies concerns 03/12/25 -?-?-?-?-?-?-?-?-?-?-?-?- 21w 4d 185 lb 2 oz (+17 lb 2 oz) 108/70 Negative -?-?-?-?-?-?-?-?-?--?-?-?- Negative 150 -?-?-?-?-?-?-?-?-?-?-?-?- MH-No VB. Dinorah jones. 04/11/25 -?-?-?-?-?-?-?-?-?-?-?-?- 25w 6d 187 lb 6 oz (+19 lb 6 oz) 110/73 Negative -?-?-?-?-?-?-?-?-?-?-?-?- Negative 140 -?-?-?-?-?-?-?-?-?-?-?-?- LC- no vb/ctx/lo fJavid gunn fm. 28 week labs ordered. no concerns. 04/24/25 -?-?-?-?-?-?-?-?-?-?-?-?- 27w 5d 191 lb 2 oz (+23 lb 2 oz) 104/72 Negative -?-?-?-?-?-?-?-?-?-?-?-?- Negative 146 27 -?-?-?-?-?-?-?-?-?-?-?-?- MH-No Vb, LOF. leonarda rodriguez FM. 28 wk labs pending 05/08/25 -?-?-?-?-?-?-?-?-?-?-?-?- 29w 5d 194 lb 4 oz (+26 lb 4 oz) 115/72 Negative -?-?-?-?-?-?-?-?-?-?-?-?- Negative 140 30 -?-?-?-?-?-?-?-?-?-?-?-?- SM- no vb lof go od fm no regular ctx 05/22/25 -?-?-?-?-?-?-?-?-?-?-?-?- 31w 5d 197 lb 3 oz (+29 lb 3 oz) 108/72 -?-?-?-?-?-?-?-?-?-?-?-?- 140 31 -?-?-?-?-?-?-?-?-?-?-?-?- JV- no lof, vagi nal bleeding, or dec fm. wants a breast pump. 06/03/25 -?-?-?-?-?-?-?-?-?-?-?-?- 33w 3d 200 lb 6 oz (+32 lb 6 oz) 112/64 Negative -?-?-?-?-?-?-?-?-?-?-?-?- Negative 145 33 -?-?-?-?-?-?-?-?-?-?-?-?- MH-No VB, LOF. G ood FM. No concerns 06/19/25 -?-?-?-?-?-?-?-?-?-?-?-?- 35w 5d 202 lb 7 oz (+34 lb 7 oz) 114/78 Negative -?-?-?-?-?-?-?-?-?-?-?-?- Negative 145 35 Cephalic -?-?-?-?-?-?-?-?-?-?-?-?- SM- no vb lof go od fm no regular ctx 06/27/25 -?-?-?-?-?-?-?-?-?-?-?-?- 36w 6d 203 lb 8 oz (+35 lb 8 oz) 120/74 -?-?-?-?-?-?-?-?-?-?-?-?- 145 37 Cephalic 1 -?-?-?-?-?-?-?-?-?-?-?-?- -3 KW- no v b/lof/ctx. good fm. GBS today. tearful with vaginal exam. denies hx of abuse 07/04/25 -?-?-?-?-?-?-?-?-?-?-?-?- 37w 6d 204 lb 2 oz (+36 lb 2 oz) 120/82 -?-?-?-?-?-?-?-?-?-?-?-?- 150 38 Cephalic 0.5 -?-?-?-?-?-?-?-?-?-?-?-?- -3 KW- no v b/lof/ctx. good fm. did better with cervical exam today 07/10/25 -?-?-?-?-?-?-?-?-?-?-?-?- 38w 5d 209 lb 1 oz (+41 lb 1 oz) 127/84 Negative -?-?-?-?-?-?-?-?-?-?-?-?- Negative 14 39 Cephalic 1 -?-?-?-?-?-?-?-?-?-?-?-?- 80 -2 JV- no lof , vaginal bleeding, or dec fm. labor precautions discussed Vital Signs Vital Signs Vital Signs: Afebrile, vital signs stable 07/13/25 11:19 07/13/25 11:19 07/13/25 11:19 Temperature 98.4 F Pulse Rate 109 H Blood Pressure 131/78 H BP Systolic 131 BP Diastolic 78 Pulse Ox 07/13/25 13:03 07/13/25 13:03 07/13/25 13:03 Temperature 98.2 F Pulse Rate 103 H Blood Pressure 130/70 H BP Systolic 130 BP Diastolic 70 Pulse Ox 07/13/25 13:04 07/13/25 13:04 07/13/25 13:09 Temperature Pulse Rate 94 114 H Blood Pressure BP Systolic BP Diastolic Pulse Ox 98 07/13/25 13:09 07/13/25 13:13 07/13/25 13:13 Temperature Pulse Rate 117 H Blood Pressure 133/81 H BP Systolic 133 BP Diastolic 81 Pulse Ox 99 07/13/25 13:14 07/13/25 13:14 07/13/25 13:16 Temperature Pulse Rate 102 H Blood Pressure 128/63 H BP Systolic 128 BP Diastolic 63 Pulse Ox 99 07/13/25 13:16 07/13/25 13:20 07/13/25 13:20 Temperature Pulse Rate 100 107 H Blood Pressure BP Systolic BP Diastolic Pulse Ox 99 07/13/25 13:22 07/13/25 13:22 07/13/25 13:25 Temperature Pulse Rate 116 H 114 H Blood Pressure 109/64 BP Systolic 109 BP Diastolic 64 Pulse Ox 07/13/25 13:25 07/13/25 13:27 07/13/25 13:27 Temperature Pulse Rate 116 H Blood Pressure 135/77 H BP Systolic 135 BP Diastolic 77 Pulse Ox 100 07/13/25 13:30 07/13/25 13:30 07/13/25 13:31 Temperature Pulse Rate 111 H Blood Pressure 134/78 H BP Systolic 134 BP Diastolic 78 Pulse Ox 99 07/13/25 13:31 07/13/25 13:35 07/13/25 13:35 Temperature Pulse Rate 113 H 93 Blood Pressure BP Systolic BP Diastolic Pulse Ox 100 07/13/25 13:37 07/13/25 13:37 07/13/25 13:40 Temperature Pulse Rate 118 H 117 H Blood Pressure 147/72 H BP Systolic 147 BP Diastolic 72 Pulse Ox 07/13/25 13:40 07/13/25 13:42 07/13/25 13:42 Temperature Pulse Rate 93 Blood Pressure 123/68 H BP Systolic 123 BP Diastolic 68 Pulse Ox 99 07/13/25 13:45 07/13/25 13:45 07/13/25 13:46 Temperature Pulse Rate 99 Blood Pressure 120/59 L BP Systolic 120 BP Diastolic 59 Pulse Ox 99 07/13/25 13:46 07/13/25 13:50 07/13/25 13:50 Temperature Pulse Rate 118 H 104 H Blood Pressure BP Systolic BP Diastolic Pulse Ox 99 07/13/25 13:51 07/13/25 13:51 07/13/25 14:51 Temperature Pulse Rate 108 H Blood Pressure 133/65 H 120/65 BP Systolic 133 120 BP Diastolic 65 65 Pulse Ox 07/13/25 14:51 07/13/25 14:51 Temperature 99.0 F Pulse Rate 115 H Blood Pressure BP Systolic BP Diastolic Pulse Ox Weight Weight: 209 lb 10.554 oz Body Mass Index (BMI) 35.9 Physical Exam Const alert, oriented x3 and no apparent distress Constitutional Narrative: Term intrauterine in active labor. General Appearance: cooperative HEENT normocephalic Neck full ROM Lymph Lymphatic: no lymphadenopathy noted Resp normal respiratory effort and no retractions Cardio regular rhythm GI GI Narrative: Abdomen size appropriate for gestational age Neuro moves all extremities Psych mental status grossly normal, affect normal and speech normal Labs Labs Labs: Blood Type A POSITIVE Antibody Screen NEGATIVE Hct, (37-47) 35.7 % L Hgb, (12.0-15.0) 12.9 g/dL Syphilis Total Ab, (Nonreactive) Nonreactive VZV IgG Antibody, (Immune >165) 1754 index Rubella IgG Antibody, (Nonreactive) REAC Hep Bs Antigen, (Nonreactive) Nonreactive Hepatitis C Antibody, (Nonreactive) Nonreactive Chlamydia DNA (JULITA), (Negative) Negative N.gonorrhoeae DNA (JULITA), (Negative) Negative HIV 1&2 Antibody, (Nonreactive) Nonreactive Glucose 1 Hr 50 gm, (70-140) 86 mg/dL Assessment & Plan (1) : QUALIFIERS: Weeks of gestation: 38 weeks Qualified Code(s): Z3A.38 - 38 weeks gestation of COMMENT: GBS neg, discussed NIPT & Carrier testing-undecided, needs f/u anatomy in 2 weeks:completed. position still would not allow full visual of right hand and could not rule out webbing of fingers. No US follow up but check after delivery. PLAN: 39+ week intrauterine in active labor. Expect spontaneous vaginal delivery.
--- NOTE | 2025-07-13 15:04 | EX.PCM.OBVAG ---
Maternal Data Information BLANCA Calculator Estimated Delivery Date Method Current WG Current Estimate 07/19/25 LMP (Certain) 39w 1d Other Estimates 07/14/25 Ultrasound #1 39w 6d Gestational age: 39 weeks 1 day Vaginal Delivery Maternal Presentation Maternal Presentation: Active Labor and Spontaneous Rupture of Membranes Vaginal Delivery Information Procedure Performed: Spontaneous Vaginal Delivery Surgeon/Practitioner: Feliciano Mullins Date of Procedure: 07/13/25 Pre-Procedure Diagnosis: Term Intrauterine in Labor Post-Procedure Diagnosis: Term Intrauterine in Labor Type of anesthesia: Epidural Estimated Blood Loss: 350 cc Time of Delivery: 14:27 Findings Description of procedure: Spontaneous vaginal delivery of a viable male infant with Apgars of 9/9 from an occiput anterior presentation and clear amniotic fluid with normal three-vessel placenta. No episiotomy. Second-degree midline laceration repaired with 3-0 rapide suture under epidural and local. There were no complications. Delivery physician: Feliciano Reddy MD. Procedure findings: Viable male infant with Apgars of 9/9 and normal three-vessel placenta and clear fluid. Presentation: Vertex and LATOYA Amniotic Membrane Rupture Type: Spontaneous Amniotic Fluid Description: Clear Placental Delivery Description: Spontaneous Placenta Disposition: [facility] Cord Entanglement: None Infant A Gender: Male (1 minute): 9 (5 minute): 9 Delayed Cord Clamping: Yes Post Vaginal Deli Medications given after delivery: IV Pitocin Episiotomy Description: None Laceration: Midline and 2nd degree Complication Complications: No
[2025-07-13] MEDS: Oxytocin 15 Units/NS 250ml 15 UNITS/250 ML IV.SOLN 83 UNITS IV (15:18)
[2025-07-14 03:53] VITALS: BP 105/61; PULSE 84; RESP 16; TEMP 36.7; O2SAT 98
--- NOTE | 2025-07-14 08:06 | PN.OBGYN_ITS ---
Subjective Subjective Patient doing well without complaints. Tolerating PO. Ambulating and voiding without difficulty. Infant in SCN and patient pumping. Denies chest pain, shortness of breath, calf pain/swelling, fevers, chills, lightheadedness. Objective Data Objective Data Vital Signs: Vital Signs Temp Pulse Resp BP Pulse Ox O2 Del Method 98.1 F 84 16 105/61 98 Room Air 07/14/25 03:53 07/14/25 03:53 07/14/25 03:53 07/14/25 03:53 07/14/25 03:53 07/14/25 03:53 Oxygen Delivery Method Room Air Weight: 209 lb 10.554 oz Body Mass Index (BMI) 35.9 Intake & Output: Intake and Output for Last 24 Hours 07/12/25 07/13/25 07/14/25 23:59 23:59 23:59 Intake Total 1749.35 / 1749.35 Output Total 1400 / 1400 Balance 349.35 / 349.35 Lab / Micro Data Attestation: I reviewed the patient's lab results. 07/13/25 11:50 Labs: Laboratory Results - last 24 hr 07/13/25 11:02: Vag Amniotic Fld Detect POSITIVE H 07/13/25 11:50: WBC 13.9 H, RBC 3.89 L, Hgb 12.9, Hct 35.7 L, MCV 91.8, MCH 33.2 H, MCHC 36.1 H, RDW Std Deviation 40.3, RDW Coeff of Memo 12.1, Plt Count 224, MPV 10.2, Immature Gran % (Auto) 1.700 H, Neut % (Auto) 78.2 H, Lymph % (Auto) 12.6 L, [place] % (Auto) 7.0, Eos % (Auto) 0.1, Baso % (Auto) 0.4, Absolute Neuts (auto) 10.9 H, Absolute Lymphs (auto) 1.75, Nucleated RBC % 0, Syphilis Total Ab Nonreactive, Blood Type A POSITIVE, Antibody Screen NEGATIVE ROS Constitutional Constitutional: Reports systems reviewed and no addt'l complaints, except as documented; Denies anorexia or headache(s) Cardiovascular Cardiovascular: Reports systems reviewed and no addt'l complaints, except as documented; Denies dizziness, dyspnea, nausea or tachypnea Respiratory/Chest Respiratory/Chest: Reports systems reviewed and no addt'l complaints, except as documented; Denies cough, dyspnea, shortness of breath at rest or tachypnea Gastrointestinal Gastrointestinal: Reports systems reviewed and no addt'l complaints, except as documented; Denies abdominal pain, constipation or nausea Genitourinary Genitourinary: Reports systems reviewed and no addt'l complaints, except as documented; Denies burning urination, difficulty urinating, dysuria, urinary frequency or urinary incontinence Musculoskeletal Musculoskeletal: Reports systems reviewed and no addt'l complaints, except as documented Integumentary Integumentary: Reports systems reviewed and no addt'l complaints, except as documented Neurologic Neurologic: Reports systems reviewed and no addt'l complaints, except as documented; Denies abnormal speech, dizziness or headache(s) Psychiatric Psychiatric: Reports systems reviewed and no addt'l complaints, except as documented Endocrine Endocrinology: Reports systems reviewed and no addt'l complaints, except as documented Hematologic/Lymphatic Hematologic/Lymphatic: Reports systems reviewed and no addt'l complaints, except as documented Physical Exam Const alert, oriented x3 and no apparent distress Neck full ROM Resp normal respiratory effort, normal air movement and no retractions Effort and Inspection: able to speak in complete sentences and symmetric chest movement GI soft to palpation Bladder / Kidney Exam: bladder normal to palpation Uterus Palpation: uterus fundus firm Extremity normal to inspection and full ROM Psych mental status grossly normal, thought process normal and cooperative Assessment & Plan (1) Obesity affecting : QUALIFIERS: Trimester: second trimester Obesity type affecting : unspecified obesity Qualified Code(s): O99.212 - Obesity complicating , second trimester COMMENT: HgbA1c (2) Vaginal delivery: COMMENT: JW (3) Anxiety: COMMENT: Mild (4) Supervision of normal first : QUALIFIERS: Trimester: third trimester Qualified Code(s): Z34.03 - Encounter for supervision of normal first , third trimester COMMENT: PRR, , BLANCA 07/19/25, boy Cam Arun (5) : QUALIFIERS: Weeks of gestation: 38 weeks Qualified Code(s): Z 3A.38 - 38 weeks gestation of COMMENT: GBS neg, discussed NIPT & Carrier testing-undecided, needs f/u anatomy in 2 weeks:completed. position still would not allow full visual of right hand and could not rule out webbing of fingers. No US follow up but check after delivery. Charges/Coding Multi Select Codes Urinary/Genital Urinary/Genital CPT Codes: No Charge
[2025-07-14 10:00] VITALS: BP 108/68; PULSE 88; RESP 16; TEMP 36.6; O2SAT 98
[2025-07-14] MEDS: Senna/Docusate Sodium 1 Tablet PO (10:16)
[2025-07-14 12:40] VITALS: BP 107/72; PULSE 88; RESP 16; TEMP 36.5; O2SAT 99
[2025-07-14 18:00] VITALS: BP 116/78; PULSE 74; RESP 16; TEMP 36.2; O2SAT 100
[2025-07-14 19:43] VITALS: BP 107/69; PULSE 75; RESP 16; TEMP 36.6; O2SAT 99
[2025-07-15 02:48] VITALS: BP 122/79; PULSE 73; RESP 16; TEMP 36.6; O2SAT 98
[2025-07-15 09:00] VITALS: BP 120/78; PULSE 81; RESP 16; TEMP 36.2; O2SAT 100
[2025-07-15] MEDS: GLYCERIN/WITCH HAZEL (TUCKS) MED..PAD 1 EACH TOPICAL (09:20)
[2025-07-15] MEDS: SELF ADMINISTRATION OF MEDS 1 EACH NOTE (09:20)
--- NOTE | 2025-07-15 11:02 | CASEMGMT ---
Social Work Assessment Labor and Delivery Unit Patient Address: [address] [place] [address] [address] [place] [address] Phone number: [phone] Date of Referral: 07/13/25 Time of Referral:? [id number] Referred By: Dr. Mullins Date of Intervention: ?07/14/25? Time of Intervention:? 1300 Reason for Referral: hx of anxiety Sw completed chart review and acknowledges social work consult due to maternal history of anxiety. Sw presented to bedside and introduced self to mother of baby (MOB- Niesha) and explained reason for sw involvement. ? Sw completed psychosocial assessment. Father of baby (FOB- Arun) was present, but was alseep on couch. History obtained from: medical records, MOB Household composition: Currently residing in the family home is MOB and FOB. Berino baby to be included in home when ready for discharge. ABIGAIL states that there are no housing concerns, stating home is safe and secure. Patient's parent/guardian status:?Parents have been together for 3 years after being introduced to each other by a family member. No concerns reported of domestic violence or intimate partner violence. Parents are , and baby is first baby for both of them. Medical History: ?ABIGAIL is 20 year old female who is 1, para 0- now 1 following labor and delivery of . ABIGAIL received routine care beginning in first trimester with [facility]. ABIGAIL presented to hospital and delivered baby via vaginal delivery on 07/13/25 at 39 weeks gestation. Baby required transfer to [facility] due to hypoglycemia and is having respiratory distress difficulties. Baby boy, named Cam Oneal, was born weighing 7lb 15oz and had apgars of 9 and 9 at one and five minutes of life, respectfully. ABIGAIL states that she is working on pumping and providing breast milk for baby, and baby will be seen by Dr. Arambula for pediatric care post discharge. Educational Status:?ABIGAIL reports that she graduated from high school and FOB obtained his associates degree. No problems with reading, learning or comprehension for either parent. Financial Status: Both parent are gainfully employed outside of the home. FOB works as a outside machinist supervisor and ABIGAIL works at [employer]. Infant Supplies:??All necessary baby supplies obtained, including: car seat, safe sleep space, clothes, diapers and wipes. Childcare/Caregiver(s):?ABIGAIL reports that she will be the primary caregiver to baby along with FOB, when both parents are working paternal grandma will be the childcare provider. Transportation:??Both parents have their drivers license along with reliable transportation, no barriers. Programs/Agencies Involved: ?Parent are over income for community resources that provide financial assistance. ?? Children Services/Legal Issues:?No history of children services involvement, no issues or concerns warranting referral to be made at this time. ?? Behavioral Health Issues: ??Mental Health History: MOB states that DENILSON does not have any mental health history. MOB states that she has been diagnosed with anxiety, but it was history of, mostly in high school. MOB states that at this time she does not feel anxious or depressed. MOB denies being prescribed medications to help her manage her anxiety, or connected to any community mental health professional. MOB states that during her she felt good, aside from the normal anxieties leading up to delivery and labor.??? Substance Use History:?MOB denies substance use prior to and during . ? Family History:??MOB denies family history of substance use or significant mental health diagnoses. ??? Drug Screens: ??No drug screens observed while completing chart review. Family/Social Stressors:? MOB denies any issues, concerns or stressors at this time. Support Systems: ABIGAIL identifies that both sets of grandparents are her biggest supports at this time Depression/Shaken Baby/Safe Sleeping:? Sw educated MOB on signs and symptoms of baby blues and depression and anxiety. Sw explained to ABIGAIL that she is more at risk for experiencing one or both of these due to having a history of anxiety as well as baby requiring transfer to SCN. MOB states that so far she feels okay. MOB reports that she has felt slightly overwhelmed and frustrated with pumping and not getting anything. Sw encouraged MOB to be consistent and to utilize support from . MOB states that FOB has been supportive and encouraging. MOB states that she has been asking questions to SCN staff, and feels as though they have been supportive and informing. Sw encouraged MOB to be active in baby care to be involved as possible. Sw educated MOB on shaken baby prevention and ABCs of safe sleep, MOB expressed understanding. ASSESSMENT:?MOB and baby admitted following labor and delivery. [facility] due to [facility] and respiratory distress. MOB with mental health history of anxiety, reports that it was mostly related to high school and teenage years. ABIGAIL states that she feels as though her mental health has been managed since that time in her life. She denies requiring medication or therapeutic interventions to manage her mental health symptoms. MOB and sw discussed how she is more at risk to experience signs and symptoms of baby blues and/ or anxiety or depression due to her mental health history and due to baby being admitted to special care nursery. ABIGAIL expressed understanding, and stated that if she were to struggle she would talk to FOB about it, or he would be able to recognize that she is struggling and would know how to help and support her. ABIGAIL states that so far since delivery she is feeling okay, denies feeling down, sad, tearful or anxious. ABIGAIL reports to having all necessary baby items, and states she has a wooten/ connection to baby. ABIGAIL has natural supports in place and people she feels she can talk to if she is struggling or has general / mom parenting questions. PLAN:? No other services requested or indicated. MOB and baby to be discharged when medically ready. Parents were provided literature regarding: signs and symptoms of baby blues and mood and anxiety disorders, Help Me Grow, shaken baby prevention, ABCs of safe sleep and a list of county resources that are available for them should any needs present themselves. Celso Frias, HANGING FLAGS DECORATOR, INTERNAL AUDIT MANAGER
--- NOTE | 2025-07-15 13:12 | DS.PCM_ITS ---
Providers Date of Admission: 07/13/25 Primary Care Physician: Yu Carter, DIRECTOR PAYMENT-C Reason For Visit: LABOR Diagnosis Discharge Diagnosis (1) Obesity affecting : Status: Acute Code(s): O99.210 - Obesity complicating , unspecified trimester Qualifiers: Trimester: second trimester Obesity type affecting : u nspecified obesity Qualified Code(s): O99.212 - Obesity complicating , second trimester (2) Vaginal delivery: Status: Acute Code(s): O80 - Encounter for full-term uncomplicated delivery (3) Anxiety: Status: Acute Code(s): F41.9 - Anxiety disorder, unspecified (4) Supervision of normal first : Status: Acute Code(s): Z34.00 - Encounter for supervision of normal first , unspecified trimester Qualifiers: Trimester: third trimester Qualified Code(s): Z34.03 - Encounter for supervision of normal first , third trimester (5) : Status: Acute Code(s): Z34.90 - Encounter for supervision of normal , unspecified, unspecified trimester Qualifiers: Weeks of gestation: 38 weeks Qualified Code(s): Z3A.38 - 38 weeks gestation of Medications at Discharge Home Medications PNV 153-FA 400 mcg-om3 35 mg-dha 25 mg-epa 5 mg-fish oil chew tablet 1 tab PO DAILY 11/26/24 breast pump #1 ea 05/22/25 Hospital Course Summary of Care Provided Hospital Course: Patient admitted and active labor delivered via vaginal delivery and had an uncomplicated course was stable for discharge to [facility] status on day 2 Weight / BMI Weight Weight: 209 lb 10.554 oz Body Mass Index (BMI) 35.9 ABG / Lab / Microbiology Data 07/13/25 11:50 D/C Instructions DC O2, CPAP, BIPAP Needs Home O2 Discharge instructions: No Meaningful Use Info Meaningful Use Meaningful Use Diagnoses (Choose all that apply): None applicable Discharge Plan Admission Admit Date/Time: 07/13/25 11:23 Attending Provider: Feliciano Mullins Primary Care Provider: Yu Carter NP Discharge Orders/Prescriptions Prescriptions: No Action PNV no.134-NE-st2-fih-ith-qzjm 400 mcg-35 mg- 25 mg-5 mg tablet,chewable 1 tab PO DAILY (DME) breast pump Device See Rx Instructions .ROUTE .MEDSUPPLY Qty: 1 0RF Rx Instructions: As directed Referrals / Follow Up: Yu Carter DIRECTOR PAYMENT, DIRECTOR PAYMENT-C [Primary Care Provider, Family Practice] Disposition Disposition (needs filled in before D/C Order can be placed): Home, Self Care
--- NOTE | 2025-07-15 13:13 | DCINST_ITS ---
Discharge Instructions DC O2, CPAP, BIPAP needs Home O2 Discharge instructions: No Dressing / Incision Discharge Activity: Return to Normal Activity, May Not Drive (while taking narcotic pain medications.) and May Shower May resume sexual activity in: 4-6 weeks Dressing / Incision Call your doctor if your incision/area has: Continuous Slow Oozing, Sudden Increased Bleeding, Increased Pain/ Swelling, Increased Redness and Foul Smelling Discharge Follow Up Care Please Follow Up With: Viky Banegas MD When: Call [phone] to make an appointment with your doctor in 6 weeks. If you had elevated blood pressure or 4th degree laceration, you will need to be seen in 2 weeks. Test Results: Test results from this visit will be discussed in further detail at your follow- up appointment, if applicable. Discharge Plan Admission Admit Date/Time: 07/13/25 11:23 Attending Provider: Feliciano Mullins Primary Care Provider: Yu Carter NP Discharge Orders/Prescriptions Prescriptions: No Action PNV no.525-PV-fr2-bfg-ori-jnch 400 mcg-35 mg- 25 mg-5 mg tablet,chewable 1 tab PO DAILY (DME) breast pump Device See Rx Instructions .ROUTE .MEDSUPPLY Qty: 1 0RF Rx Instructions: As directed Referrals / Follow Up: Yu Carter NP, C[employer] TRUCK DRIVER-C [Primary Care Provider, Family Practice] Disposition Disposition (needs filled in before D/C Order can be placed): Home, Self Care
--- NOTE | 2025-07-15 13:16 | PCM.PN.OB ---
Subjective Subjective Patient doing well without complaints. Tolerating PO. Ambulating and voiding without difficulty. feeding well. Denies chest pain, shortness of breath, calf pain/swelling, fevers, chills, lightheadedness. Objective Data Objective Data Vital Signs: Vital Signs Temp Pulse Resp BP Pulse Ox O2 Del Method 97.1 F L 81 16 120/78 100 Room Air 07/15/25 09:00 07/15/25 09:00 07/15/25 09:00 07/15/25 09:00 07/15/25 09:00 07/15/25 09:00 Oxygen Delivery Method Room Air Weight: 209 lb 10.554 oz Body Mass Index (BMI) 35.9 Intake & Output: Intake and Output for Last 24 Hours 07/13/25 07/14/25 07/15/25 23:59 23:59 23:59 Intake Total 1749.35 / 1749.35 Output Total 1400 / 1400 Balance 349.35 / 349.35 Lab / Micro Data 07/13/25 11:50 ROS Constitutional Constitutional: Reports systems reviewed and no addt'l complaints, except as documented Cardiovascular Cardiovascular: Reports systems reviewed and no addt'l complaints, except as documented Respiratory/Chest Respiratory/Chest: Reports systems reviewed and no addt'l complaints, except as documented Gastrointestinal Gastrointestinal: Reports systems reviewed and no addt'l complaints, except as documented Physical Exam Const alert, oriented x3 and no apparent distress HEENT Head and Scalp: atraumatic Resp normal respiratory effort GI soft to palpation and non-tender Bimanual Exam - Vag & Uterus: uterus non-tender Uterus Palpation: uterus fundus firm (below Umbilicus) Assessment & Plan (1) Vaginal delivery: COMMENT: BREANA PLAN: Plan s/p PPD # 2 1. routine post delivery care 2. breast feeding- support given 3. rh positive 4. rubella immune
[2025-07-15 16:00] VITALS: BP 112/76; PULSE 86; RESP 16; TEMP 36.4; O2SAT 99
== END 2025-07-15 16:00 | disposition home or self-care (01) | DRG 807 ==
LOC: WPOUT 11:25 → WP 11:25
PROVIDERS: Admitting Provider Obstetrics & Gynecology; PCP Nurse Practitioner Family; Visit Provider Obstetrics & Gynecology
DX: O70.1 Second degree perineal laceration during delivery (principal); Z37.0 Single live birth; O99.344 Other mental disorders complicating childbirth; F41.9 Anxiety disorder, unspecified; O99.214 Obesity complicating childbirth; Z3A.39 39 weeks gestation of pregnancy
CPT/HCPCS: 59025; 59050; 84112; 85025; 86780; 86850; 86900; 86901; 99221; G0378